=== PATIENT | female | born 1970 | race Caucasian/White ===

== ENCOUNTER 2020-02-03 20:04 | Emergency (ER) | payer SELFPAY ==
[2020-02-03] MEDS ORDERED: Sodium Chloride 0.9% 2.5 ML Syringe FLUSH PRN (20:32)
[2020-02-03] MEDS ORDERED: Famotidine 20 MG/2 ML SDV IVPUSH ONE (20:32)
[2020-02-03] MEDS ORDERED: Aspirin 81 MG Tab.Chew PO ONE (20:32)
[2020-02-03] MEDS ORDERED: Ondansetron 4 MG/2 ML SDV IVPUSH ONE (20:32)
[2020-02-03] MEDS ORDERED: Sodium Chloride 0.9% 10 ML Syringe FLUSH PRN (20:32)
--- NOTE | 2020-02-03 20:36 | EDM.PDOC ---
ED HPI GENERAL MEDICAL PROBLEM - General Chief Complaint: Cardiovascular Problem Stated Complaint: HARD TIME BREATHING,SHOULDER BLADE PAIN Time Seen by Provider: 02/03/20 20:21 Source of Information: Reports: Patient History Limitations: Reports: No Limitations - History of Present Illness INITIAL COMMENTS - FREE TEXT/NARRATIVE: History of present illness: [Patient is 50-year-old female with no significant cardiac history who presents with hypertension, heartburn, pain and sensation of hotness to the right side of her neck and right shoulder. She states that her blood pressure was high this morning, she took her normal lisinopril dose, 20 mg, this morning and took a nap. She states that she had forgotten she took these blood pressure pills earlier and she took another dose of lisinopril after she woke up from her nap. She states after this she felt a little bit loopy. She was concerned her blood pressure would be low but instead it seemed it was running quite high, much higher than usual. Stated that the blood pressure at home was over 200 systolic. Heartburn is substernal. She states that normally when she gets heartburn it is more epigastric in nature. She tried taking some [id number] antacids but this did not provide significant relief. She states that she has had a mild headache all day today. Denies any previous cardiac history. She does smoke cigarettes. Denies chronic lung problems. No previous stress tests or cardiac work-ups.] Review of systems: As per history of present illness and below otherwise all systems reviewed and n egative. Past medical history: As per history of present illness and as reviewed below otherwise noncontributory. Surgical history: As per history of present illness and as reviewed below otherwise noncontributory. Social history: No reported history of drug or alcohol abuse. Family history: As per history of present illness and as reviewed below otherwise noncontributory. Physical exam: General: Awake, alert, no acute distress, A&O X3. HEENT: Atraumatic, normocephalic, pupils reactive, negative for conjunctival pallor or scleral icterus, mucous membranes moist, throat clear, neck supple, nontender, trachea midline. Lungs: Clear to auscultation, breath sounds equal bilaterally, chest nontender. Heart: RRR, normal S1S2, no JVD. Abdomen: Soft, nondistended, nontender. Negative for masses or hepatosplenomegaly. Negative for costovertebral tenderness. Pelvis: Stable nontender. Genitourinary: Deferred. Rectal: Deferred. Extremities: Atraumatic, no edema, Neurovascular unremarkable. Neuro: Motor and sensory grossly intact throughout. Exam nonfocal. Diagnostics: [] Therapeutics: [] Impression: [] Plan: [] Definitive disposition and diagnosis as appropriate pending reevaluation and review of above. 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 INSTALLER History: ovarian cyst rupture Musculoskeletal History: Reports: Back Pain, Chronic - Past Surgical History GI Surgical History: Reports: Other (See Below) Other GI Surgeries/Procedures: hernia repair x 3 Female Surgical History: Reports: Other (See Below) Other Female Surgeries/Procedures: ovarian cyst rupture Musculoskeletal Surgical History: Reports: Other (See Below) Other Musculoskeletal Surgeries/Procedures:: back and neck pain Social & Family History - Recreational Drug Use Recreational Drug Use: No ED ROS GENERAL - Review of Systems Review Of Systems: Comprehensive ROS is negative, except as noted in HPI. ED EXAM, GENERAL - Physical Exam Exam: See Below (See H&P) EKG INTERPRETATION EKG Date: 02/03/20 Time: 20:20 Rhythm: NSR Rate (Beats/Min): 80 Scotts: Normal P-Wave: Present QRS: Normal ST-T: Normal QT: Normal Course - Vital Signs Text/Narrative:: Serial troponins are negative. CTA of the chest is negative for PE. She does have evidence of a pericardial fat pad. There is evidence of lingular atelectasis, this is more likely given her clinical findings then infiltrate or pneumonia. I updated her also in the findings of the radiologist comments on the liver. I told her this was of uncertain significance and she needed to follow-up through her PCP about it. Her symptoms are better controlled. Her chest discomfort and heartburn type symptoms have resolved. Her arm pain is resolved. Her headache has significantly improved. She reports feeling tired. I believe given her work-up she is an appropriate candidate for outpatient management and follow-up. She is a heart score of 2 for her age and history of hypertension. Return precautions provided otherwise she was well-appearing, hypertension has resolved, vital signs stable at discharge. Last Recorded V/S: Last Vital Signs Temp 36.3 C 02/03/20 20:08 Pulse 58 L 02/03/20 23:48 Resp 16 02/03/20 23:48 BP 170/100 H 02/03/20 23:48 Pulse Ox 96 02/03/20 23:48 - Orders/Labs/Meds Orders: Active Orders 24 hr Category Date Time Status Sodium Chloride 0.9% [Saline Flush] Med 02/03/20 20:32 Active 10 ml FLUSH ASDIRECTED PRN Sodium Chloride 0.9% [Saline Flush] Med 02/03/20 20:32 Active 2.5 ml FLUSH ASDIRECTED PRN Saline Lock Insert [OM.PC] Stat Oth 02/03/20 20:32 Ordered Medication Orders Sodium Chloride (Saline Flush) 10 ml FLUSH ASDIRECTED PRN PRN Reason: Keep Vein Open Last Admin: 02/03/20 20:41 Dose: 10 ml Documented by: [id number] Sodium Chloride (Saline Flush) 2.5 ml FLUSH ASDIRECTED PRN PRN Reason: Keep Vein Open Last Admin: 02/03/20 20:41 Dose: 2.5 ml Documented by: [id number] Labs: Laboratory Tests 02/03/20 02/03/20 02/03/20 Range/Units 20:15 20:15 20:15 WBC 5.87 (4.0-11.0) K/uL RBC 4.28 L (4.30-5.90) M/uL Hgb 14.0 (12.0-16.0) g/dL Hct 41.0 (36.0-46.0) % MCV 95.8 (80.0-98.0) fL MCH 32.7 H (27.0-32.0) pg MCHC 34.1 (31.0-37.0) g/dL RDW Std Deviation 43.0 (28.0-62.0) fl RDW Coeff of Malvin 12 (11.0-15.0) % Plt Count 245 (150-400) K/uL MPV 10.60 (7.40-12.00) fL Neut % (Auto) 55.9 (48.0-80.0) % Lymph % (Auto) 30.3 (16.0-40.0) % [place] % (Auto) 9.7 (0.0-15.0) % Eos % (Auto) 3.6 (0.0-7.0) % Baso % (Auto) 0.5 (0.0-1.5) % Neut # (Auto) 3.3 (1.4-5.7) K/uL Lymph # (Auto) 1.8 (0.6-2.4) K/uL [place] # (Auto) 0.6 (0.0-0.8) K/uL Eos # (Auto) 0.2 (0.0-0.7) K/uL Baso # (Auto) 0.0 (0.0-0.1) K/uL Nucleated RBC % 0.0 /100WBC Nucleated RBCs # 0 K/uL Sodium 137 (136-145) mmol/L Potassium 3.8 (3.5-5.1) mmol/L Chloride 103 (98-107) mmol/L Carbon Dioxide 21.2 (21.0-32.0) mmol/L BUN 18 (7.0-18.0) mg/dL Creatinine 0.9 (0.6-1.0) mg/dL Est Cr Clr Drug Dosing 68.04 mL/min Estimated GFR (MDRD) > 60.0 ml/min Glucose 115 H (74-106) mg/dL Calcium 9.4 (8.5-10.1) mg/dL Total Bilirubin 0.2 (0.2-1.0) mg/dL AST 15 (15-37) IU/L ALT 20 (14-63) IU/L Alkaline Phosphatase 73 (46-116) U/L Troponin I < 0.050 (0.000-0.056) ng/mL Total Protein 7.5 (6.4-8.2) g/dL Albumin 4.0 (3.4-5.0) g/dL Globulin 3.5 (2.6-4.0) g/dL Albumin/Globulin Ratio 1.1 (0.9-1.6) Lipase 195 (73-393) U/L HCG, Qual NEGATIVE (NEG) 02/03/20 Range/Units 23:30 WBC (4.0-11.0) K/uL RBC (4.30-5.90) M/uL Hgb (12.0-16.0) g/dL Hct (36.0-46.0) % MCV (80.0-98.0) fL MCH (27.0-32.0) pg MCHC (31.0-37.0) g/dL RDW Std Deviation (28.0-62.0) fl RDW Coeff of Malvin (11.0-15.0) % Plt Count (150-400) K/uL MPV (7.40-12.00) fL Neut % (Auto) (48.0-80.0) % Lymph % (Auto) (16.0-40.0) % [place] % (Auto) (0.0-15.0) % Eos % (Auto) (0.0-7.0) % Baso % (Auto) (0.0-1.5) % Neut # (Auto) (1.4-5.7) K/uL Lymph # (Auto) (0.6-2.4) K/uL [place] # (Auto) (0.0-0.8) K/uL Eos # (Auto) (0.0-0.7) K/uL Baso # (Auto) (0.0-0.1) K/uL Nucleated RBC % /100WBC Nucleated RBCs # K/uL Sodium (136-145) mmol/L Potassium (3.5-5.1) mmol/L Chloride (98-107) mmol/L Carbon Dioxide (21.0-32.0) mmol/L BUN (7.0-18.0) mg/dL Creatinine (0.6-1.0) mg/dL Est Cr Clr Drug Dosing mL/min Estimated GFR (MDRD) ml/min Glucose (74-106) mg/dL Calcium (8.5-10.1) mg/dL Total Bilirubin (0.2-1.0) mg/dL AST (15-37) IU/L ALT (14-63) IU/L Alkaline Phosphatase (46-116) U/L Troponin I < 0.050 (0.000-0.056) ng/mL Total Protein (6.4-8.2) g/dL Albumin (3.4-5.0) g/dL Globulin (2.6-4.0) g/dL Albumin/Globulin Ratio (0.9-1.6) Lipase (73-393) U/L HCG, Qual (NEG) Meds: Medications Generic Name Dose Route Start Last Admin Trade Name Freq PRN Reason Stop Dose Admin Sodium Chloride 10 ml 02/03/20 20:32 02/03/20 20:41 Saline Flush FLUSH 10 ml ASDIRECTED PRN Administration Keep Vein Open Sodium Chloride 2.5 ml 02/03/20 20:32 02/03/20 20:41 Saline Flush FLUSH 2.5 ml ASDIRECTED PRN Administration Keep Vein Open Discontinued Medications Generic Name Dose Route Start Last Admin Trade Name Freq PRN Reason Stop Dose Admin Aspirin 324 mg 02/03/20 20:32 02/03/20 20:41 Aspirin PO 02/03/20 20:33 324 mg ONETIME ONE Administration Diphenhydramine HCl 25 mg 02/03/20 23:31 02/03/20 23:41 Benadryl IVPUSH 02/03/20 23:32 25 mg ONETIME ONE Administration Famotidine 20 mg 02/03/20 20:32 02/03/20 20:42 Pepcid IVPUSH 02/03/20 20:33 20 mg ONETIME ONE Administration Iopamidol 90 ml 02/03/20 23:17 02/03/20 23:18 Isovue-370 (76%) IVPUSH 02/03/20 23:18 90 ml ONETIME ONE Administration Labetalol HCl 20 mg 02/03/20 20:59 02/03/20 21:09 Normodyne IVPUSH 02/03/20 21:00 20 mg ONETIME ONE Administration Protocol Metoclopramide HCl 10 mg 02/03/20 23:31 02/03/20 23:40 Reglan IVPUSH 02/03/20 23:32 10 mg ONETIME ONE Administration Morphine Sulfate 4 mg 02/03/20 20:59 02/03/20 21:09 Morphine IVPUSH 02/03/20 21:00 4 mg ONETIME ONE Administration Nitroglycerin 0.4 mg 02/03/20 20:32 02/03/20 20:54 Nitrostat SL 0.4 mg Q5M PRN Administration Chest Pain Ondansetron HCl 4 mg 02/03/20 20:32 02/03/20 20:42 Zofran IVPUSH 02/03/20 20:33 4 mg ONETIME ONE Administration Departure - Departure Time of Disposition: 00:57 Disposition: Home, Self-Care 01 Condition: Good Clinical Impression: Chest pain, Hypertension Instructions: Nonspecific Chest Pain, Adult, Hypertension, Adult, [id number] Forms: ED Department Discharge Additional Instructions: Follow-up with primary care doctor. Return to the ER with any new or worsening symptoms. The following information is given to patients seen in the emergency department who are being discharged to home. This information is to outline your options for follow-up care. We provide all patients seen in our emergency department with a follow-up referral. The need for follow-up, as well as the timing and circumstances, are variable depending upon the specifics of your emergency department visit. If you don't have a primary care physician on staff, we will provide you with a referral. We always advise you to contact your personal physician following an emergency department visit to inform them of the circumstance of the visit and for follow-up with them and/or the need for any referrals to a consulting specialist. The emergency department will also refer you to a specialist when appropriate. This referral assures that you have the opportunity for follow-up care with a s pecialist. All of these measure are taken in an effort to provide you with optimal care, which includes your follow-up. Under all circumstances we always encourage you to contact your private physici an who remains a resource for coordinating your care. When calling for follow-up care, please make the office aware that this follow-up is from your recent emergency room visit. If for any reason you are refused follow-up, please contact the [facility] Emergency Department at and asked to speak to the emergency department charge nurse. Sepsis Event Note (ED) - Evaluation Sepsis Screening Result: No Definite Risk - Focused Exam Vital Signs: Vital Signs Temp Pulse Resp BP BP Pulse Ox 02/03/20 23:48 58 L 16 170/100 H 96 02/03/20 22:00 72 20 93 L 02/03/20 20:54 164/118 H 02/03/20 20:47 174/118 H 02/03/20 20:42 167/119 H 02/03/20 20:08 36.3 C 79 16 210/122 H 97 - My Orders Last 24 Hours: My Active Orders 02/03/20 20:32 Sodium Chloride 0.9% [Saline Flush] 10 ml FLUSH ASDIRECTED PRN Sodium Chloride 0.9% [Saline Flush] 2.5 ml FLUSH ASDIRECTED PRN Saline Lock Insert [OM.PC] Stat - Assessment/Plan Last 24 Hours: My Active Orders 02/03/20 20:32 Sodium Chloride 0.9% [Saline Flush] 10 ml FLUSH ASDIRECTED PRN Sodium Chloride 0.9% [Saline Flush] 2.5 ml FLUSH ASDIRECTED PRN Saline Lock Insert [OM.PC] Stat
[2020-02-03] MEDS: Nitroglycerin 0.4 MG Tab.SL SL PRN ×3 (20:42→20:54)
[2020-02-03 20:52] LABS: BLOOD UREA NITROGEN,BUN 18 mg/dL (7.0-18.0); CARBON DIOXIDE,CO2 21.2 mmol/L (21.0-32.0); CHLORIDE,CL 103 mmol/L (98-107); GLUCOSE RANDOM 115 mg/dL (74-106); LIPASE 195 U/L (73-393); POTASSIUM,K 3.8 mmol/L (3.5-5.1); SODIUM,NA 137 mmol/L (136-145)
[2020-02-03] MEDS ORDERED: Morphine 4 MG/ML Syringe IVPUSH ONE (20:59)
[2020-02-03] MEDS ORDERED: Labetalol 100 MG/20 ML MDV IVPUSH ONE (20:59)
--- NOTE | 2020-02-03 21:58 | CR ---
INDICATION: Chest pain. COMPARISON: None. TECHNIQUE: Portable AP chest. FINDINGS: Normal size cardiac silhouette. Clear lung garcia with no evidence of acute pneumonic infiltrates or CHF. A vague nodular opacity left lower lung. Prominent soft tissue at the cardiophrenic angle on the right; rule out prominent fat pad at the cardiophrenic angle; rule out pericardial cyst. Suggest obtaining a CT of the chest through the lower half to assess the possible pulmonary nodule in the left lower lobe as well as the soft tissue at the cardiophrenic angle on the right . Impression: No acute pathology. 1. Possible pulmonary nodule left lung and either prominent cardiophrenic angle fat pad or pericardial cyst; suggest obtaining a CT chest for further assessment. Dictated by Vikas Osborne MD @ Feb 03 2020 9:55PM Signed by Dr. Viksa Osborne @ Feb 03 2020 9:57PM
[2020-02-03] MEDS ORDERED: Iopamidol 755 Mg/ML 100 ML Bottle IVPUSH ONE (23:17)
[2020-02-03] MEDS ORDERED: Metoclopramide 10 MG/2 ML SDV IVPUSH ONE (23:31)
[2020-02-03] MEDS ORDERED: diphenhydrAMINE 50 MG/ML SDV IVPUSH ONE (23:31)
--- NOTE | 2020-02-04 00:03 | CT ---
HISTORY: Chest pain lung nodule versus pericardial fat pad Technique: Contrast-enhanced CT PE. COMPARISON: Chest x-ray 02/03/2020. Findings: Normal caliber thoracic aorta. Adequate opacification of the pulmonary arteries. No filling defects in the pulmonary arteries. The heart size is normal. There is no pericardial effusion. Right pericardial fat pad. Lingular atelectasis and/or consolidation. No effusion. Right hemidiaphragm elevated. Small low-density collection along the inferior right hepatic lobe of uncertain etiology. This could be followed up. No suspicious bony lesions Impression: 1. No pulmonary emboli. 2. Lingula atelectasis or infiltrate. 3. Right pericardial fat pad. 4. Small low-density collection along the inferior right hepatic lobe of uncertain etiology this could be followed up Please note that all CT scans at this facility use dose modulation, iterative reconstruction, and/or weight-based dosing when appropriate to reduce radiation dose to as low as reasonably achievable. Dictated by Paula Segovia MD @ Feb 03 2020 11:48PM Signed by Dr. Paula Segovia @ Feb 04 2020 12:01AM
== END 2020-02-04 01:18 | disposition home or self-care (01) ==
LOC: MW.ED 20:04
DX: I10 Essential (primary) hypertension (principal); Z79.899 Other long term (current) drug therapy
CPT/HCPCS: 36415; 71045; 71275; 80053; 83690; 84484; 84703; 85025; 93005; 96374; 96375; 99285; A9270; J1200; J2270; J2405; J2765; J3490; Q9967; 99283

== ENCOUNTER 2020-02-08 14:38 | Observation (INO) | payer OTHER ==
[2020-02-08] MEDS ORDERED: Sodium Chloride 0.9% 1,000 ML IV ONE ×2 (15:03→20:02)
[2020-02-08] MEDS ORDERED: Ondansetron 4 MG/2 ML SDV IVPUSH ONE (15:03)
[2020-02-08] MEDS ORDERED: Ketorolac 30 MG/ML SDV IVPUSH ONE (15:03)
--- NOTE | 2020-02-08 15:10 | EDM.PDOC ---
ED HPI GENERAL MEDICAL PROBLEM - General Chief Complaint: Fever Stated Complaint: CHILLS, BODYACHE, FEVER Time Seen by Provider: 02/08/20 14:39 Source of Information: Reports: Patient History Limitations: Reports: No Limitations - History of Present Illness INITIAL COMMENTS - FREE TEXT/NARRATIVE: HISTORY AND PHYSICAL: History of present illness: Patient is a 50-year-old female who presents to the emergency room with complaints of chest pain, generalized body aches, generalized abdominal pain and tenderness and fever which started today she states that she has not had a norm al bowel movement in approximately 2 weeks, yesterday took a laxative and now has generalized abdominal pain today. She states she has not had a bowel movement with the exception of some very small "squirts of liquid". She took another laxative today without any results. She is tried to eat lunch but vomited soon after. Since this morning she has had generalized body aches that radiates into her low back up into her head. She expresses concern that she may have been exposed to COVID-19 as she was at a baseball game standing next to someone who recently returned from a group gathering at [place]. Patient denies any injury, trauma or falls. Denies any change in vision, syncope or near syncope. Denies any chest pain, back pain, shortness of breath or cough. Denies any chance of or dysuria. Has not noted any blood in urine or stool. Review of systems: As per history of present illness and below otherwise all systems reviewed and negative. Past medical history: As per history of present illness and as reviewed below otherwise noncontributory. Surgical history: As per history of present illness and as reviewed below otherwise noncontributory. Social history: See social history for further information Family history: As per history of present illness and as reviewed below otherwise noncontributory. Physical exam: General: Well developed and well nourished 50-year-old female. Alert and orientated x 3. Tearful and agitated upon arrival, nontoxic in appearance and in no acute distress. Vital signs are stable and have been reviewed by me. Nursing notes were reviewed. HEENT: Atraumatic, normocephalic, pupils equal and reactive bilaterally, negative for conjunctival pallor or scleral icterus, mucous membranes moist, TMs normal bilaterally, throat clear, neck supple, nontender, trachea midline. No drooling or trismus noted. No meningeal signs. No hot potato voice noted. Lungs: Clear to auscultation, breath sounds equal bilaterally, chest nontender. Normal work of breathing, no accessory muscles used. Heart: S1S2, regular rate and rhythm without overt murmur Abdomen: Soft, nondistended, generalized tenderness in all 4 quadrants. Negative for masses or hepatosplenomegaly. Negative for costovertebral tenderness. Pelvis: Stable nontender. Skin: Intact, warm, dry. No lesions or rashes noted. Hematologic: No petechiae or purpra. Mucosa appropriate color and normal nail bed color and refill. Extremities: Atraumatic, moves all extremities per self without difficulty or deficits, negative for cords or calf pain. Neurovascular unremarkable. Neuro: Awake, alert, oriented. Cranial nerves II through XII unremarkable. Cerebellum unremarkable. Motor and sensory unremarkable throughout. Exam nonfocal. Notes: CTA of the chest was done on 02/03/2020: No PE, right pericardial fat pad, small low-density collection along the inferior right hepatic lobe without certain etiology. Patient remains slightly tachycardic and her oxygen has now dipped into 92% on room air, 2 L per nasal cannula has been placed. Oxygenating now 97. Patient's d-dimer is elevated, although with her recent CTA of the chest ruling out a PE, I do not feel this needs to be repeated at this time. Negative COVID screening. This could be a false negative, or too soon to come back positive with the patient's onset of symptoms and her current. Patient continues to complain of generalized body aches stating "even my hair hurts". She continues to feel mildly nauseated and states she does not feel she could keep any medications down. Patient will be admitted for her CT of the abdomen and pelvis showing a mild sigmoid diverticulitis. Dr. Ortega was consulted and agreeable to admitting this patient. He is made aware of all the diagnostic findings and that a CT of her chest was held at this time. Diagnostics: CBC, CMP, Lactate, UA, HCGU, Coronavirus, CXR, abd/pelvis CT, BC x 2 Therapeutics: IV fluids, Toradol, Zofran, Ativan Impression: Mild sigmoid diverticulitis Myalgias Elevated d-dimer Plan: Admission to [facility] Definitive disposition and diagnosis as appropriate pending reevaluation and review of above. generalized Pain Score (Numeric/FACES): 10 - Related Data Allergies Allergy/AdvReac Type Severity Reaction Status Date / Time No Known Allergies Allergy Verified 02/08/20 14:57 Home Meds: Home Meds lisinopriL [Lisinopril] 10 mg PO BEDTIME 02/03/20 [History] lisinopriL [Lisinopril] 20 mg PO QAM 02/03/20 [History] ClonazePAM [KlonoPIN] 0 mg PO BEDTIME 02/08/20 [History] Past Medical History Cardiovascular History: Reports: Hypertension Gastrointestinal History: Reports: None Genitourinary History: Reports: None SPONGE MAKER History: Reports: Other (See Below) Other SPONGE MAKER History: ovarian cyst rupture Musculoskeletal History: Reports: Back Pain, Chronic Psychiatric History: Reports: Other (See Below) Other Psychiatric History: sleep disturbance - Past Surgical History Cardiovascular Surgical History: Reports: None GI Surgical History: Reports: Other (See Below) Other GI Surgeries/Procedures: hernia repair x 3 Female Surgical History: Reports: Other (See Below) Other Female Surgeries/Procedures: ovarian cyst rupture Musculoskeletal Surgical History: Reports: Other (See Below) Other Musculoskeletal Surgeries/Procedures:: back and neck pain Social & Family History - Family History Family Medical History: Noncontributory - Tobacco Use Smoking Status *Q: Current Some Day Smoker Years of Tobacco use: 2 Packs/Tins Daily: 0.1 - Caffeine Use Caffeine Use: Reports: Coffee - Recreational Drug Use Recreational Drug Use: No ED ROS GENERAL - Review of Systems Review Of Systems: Comprehensive ROS is negative, except as noted in HPI. ED EXAM, GENERAL - Physical Exam Exam: See Below (See dictation) Course - Vital Signs Last Recorded V/S: Last Vital Signs Temp 99.8 F 02/08/20 16:38 Pulse 122 H 02/08/20 16:04 Resp 20 02/08/20 16:04 BP 108/75 02/08/20 16:04 Pulse Ox 94 L 02/08/20 16:06 - Orders/Labs/Meds Orders: Active Orders 24 hr Category Date Time Status Admission Status [Patient Status] [ADT] Stat ADT 02/08/20 17:09 Active EKG Documentation Completion [RC] STAT Care 02/08/20 16:08 Active Oxygen Therapy [RC] PRN Care 02/08/20 18:06 Active Up ad Mary [RC] ASDIRECTED Care 02/08/20 18:06 Active VTE/DVT Education [RC] PER UNIT ROUTINE Care 02/08/20 18:06 Active Vital Signs [RC] Q4H Care 02/08/20 18:06 Active Clear Liquid Diet [DIET] Diet 02/08/20 Lunch Active CAMPYLOBACTER CULT [MREF] Stat Lab 02/08/20 17:10 Ordered CBC WITH AUTO DIFF [HEME] AM Lab 02/09/20 05:11 Ordered COMPREHENSIVE METABOLIC PN,CMP [CHEM] AM Lab 02/09/20 05:11 Ordered CULTURE BLOOD [BC] Stat Lab 02/08/20 14:53 Received CULTURE BLOOD [BC] Stat Lab 02/08/20 15:15 Results OVA & PARASITES BY IMMUNOASSAY [MREF] Stat Lab 02/08/20 17:10 Ordered UA RFX ESVIN AND CULT IF INDIC [URIN] Stat Lab 02/08/20 15:03 Ordered Acetaminophen [TylenoL] Med 02/08/20 18:06 Active 650 mg PO Q4H PRN Ciprofloxacin in D5W [Cipro in D5W 400 MG/200 ML] 400 Med 02/08/20 18:15 Active mg Premix Bag 1 bag IV Q12H Enoxaparin [Lovenox] Med 02/08/20 18:15 Active 40 mg SUBCUT Q24H Lactated Ringers [Ringers, Lactated] 1,000 ml Med 02/08/20 18:15 Active IV ASDIRECTED Ondansetron [Zofran] Med 02/08/20 18:06 Active 4 mg IVPUSH Q4H PRN metroNIDAZOLE/Normal Saline [Flagyl 500 MG in NS 100 ML Med 02/08/20 18:15 Active ] 500 mg Premix Bag 1 bag IV Q8H Blood Culture x2 Reflex Set [OM.PC] Stat Oth 02/08/20 15:03 Ordered Resuscitation Status Routine Resus Stat 02/08/20 18:06 Ordered Medication Orders Acetaminophen (Tylenol) 650 mg PO Q4H PRN PRN Reason: Pain (Mild 1-3)/fever Enoxaparin Sodium (Lovenox) 40 mg SUBCUT Q24H JES Ciprofloxacin/Dextrose 400 mg/ (Premix) 200 mls @ 200 mls/hr IV Q12H JES Metronidazole 500 mg/ Premix 100 mls @ 100 mls/hr IV Q8H JES Lactated Ringer's (Ringers, Lactated) 1,000 mls @ 100 mls/hr IV ASDIRECTED [facility] Ondansetron HCl (Zofran) 4 mg IVPUSH Q4H PRN PRN Reason: Nausea Labs: Laboratory Tests 02/08/20 02/08/20 02/08/20 Range/Units 14:53 14:53 14:53 WBC 4.12 (4.0-11.0) K/uL RBC 4.50 (4.30-5.90) M/uL Hgb 14.7 (12.0-16.0) g/dL Hct 43.1 (36.0-46.0) % MCV 95.8 (80.0-98.0) fL MCH 32.7 H (27.0-32.0) pg MCHC 34.1 (31.0-37.0) g/dL RDW Std Deviation 42.5 (28.0-62.0) fl RDW Coeff of Malvin 12 (11.0-15.0) % Plt Count 195 (150-400) K/uL MPV 10.30 (7.40-12.00) fL Neut % (Auto) 85.7 H (48.0-80.0) % Lymph % (Auto) 10.0 L (16.0-40.0) % [place] % (Auto) 3.4 (0.0-15.0) % Eos % (Auto) 0.7 (0.0-7.0) % Baso % (Auto) 0.2 (0.0-1.5) % Neut # (Auto) 3.5 (1.4-5.7) K/uL Lymph # (Auto) 0.4 L (0.6-2.4) K/uL [place] # (Auto) 0.1 (0.0-0.8) K/uL Eos # (Auto) 0.0 (0.0-0.7) K/uL Baso # (Auto) 0.0 (0.0-0.1) K/uL Nucleated RBC % 0.0 /100WBC Nucleated RBCs # 0 K/uL D-Dimer, Quantitative (0.0-0.50) mg/L FEU Lactate 1.9 (0.20-2.00) mmol/L Sodium 135 L (136-145) mmol/L Potassium 3.7 (3.5-5.1) mmol/L Chloride 98 (98-107) mmol/L Carbon Dioxide 23.8 (21.0-32.0) mmol/L BUN 19 H (7.0-18.0) mg/dL Creatinine 1.0 (0.6-1.0) mg/dL Est Cr Clr Drug Dosing 61.23 mL/min Estimated GFR (MDRD) 58.9 ml/min Glucose 107 H (74-106) mg/dL Calcium 9.7 (8.5-10.1) mg/dL Total Bilirubin 0.3 (0.2-1.0) mg/dL AST 4 L (15-37) IU/L ALT 36 (14-63) IU/L Alkaline Phosphatase 90 (46-116) U/L Creatine Kinase 60 (26-308) U/L Total Protein 8.6 H (6.4-8.2) g/dL Albumin 4.1 (3.4-5.0) g/dL Globulin 4.5 H (2.6-4.0) g/dL Albumin/Globulin Ratio 0.9 (0.9-1.6) Lipase 203 (73-393) U/L TSH 3rd Generation (0.36-3.74) uIU/mL HCG, Qual (NEG) COVID-19 (NILAY) (NEGATIVE) 02/08/20 02/08/20 02/08/20 Range/Units 14:53 14:53 14:53 WBC (4.0-11.0) K/uL RBC (4.30-5.90) M/uL Hgb (12.0-16.0) g/dL Hct (36.0-46.0) % MCV (80.0-98.0) fL MCH (27.0-32.0) pg MCHC (31.0-37.0) g/dL RDW Std Deviation (28.0-62.0) fl RDW Coeff of Malvin (11.0-15.0) % Plt Count (150-400) K/uL MPV (7.40-12.00) fL Neut % (Auto) (48.0-80.0) % Lymph % (Auto) (16.0-40.0) % [place] % (Auto) (0.0-15.0) % Eos % (Auto) (0.0-7.0) % Baso % (Auto) (0.0-1.5) % Neut # (Auto) (1.4-5.7) K/uL Lymph # (Auto) (0.6-2.4) K/uL [place] # (Auto) (0.0-0.8) K/uL Eos # (Auto) (0.0-0.7) K/uL Baso # (Auto) (0.0-0.1) K/uL Nucleated RBC % /100WBC Nucleated RBCs # K/uL D-Dimer, Quantitative (0.0-0.50) mg/L FEU Lactate 1.9 (0.20-2.00) mmol/L Sodium (136-145) mmol/L Potassium (3.5-5.1) mmol/L Chloride (98-107) mmol/L Carbon Dioxide (21.0-32.0) mmol/L BUN (7.0-18.0) mg/dL Creatinine (0.6-1.0) mg/dL Est Cr Clr Drug Dosing mL/min Estimated GFR (MDRD) ml/min Glucose (74-106) mg/dL Calcium (8.5-10.1) mg/dL Total Bilirubin (0.2-1.0) mg/dL AST (15-37) IU/L ALT (14-63) IU/L Alkaline Phosphatase (46-116) U/L Creatine Kinase (26-308) U/L Total Protein (6.4-8.2) g/dL Albumin (3.4-5.0) g/dL Globulin (2.6-4.0) g/dL Albumin/Globulin Ratio (0.9-1.6) Lipase (73-393) U/L TSH 3rd Generation 0.40 (0.36-3.74) uIU/mL HCG, Qual NEGATIVE (NEG) COVID-19 (NILAY) (NEGATIVE) 02/08/20 02/08/20 Range/Units 14:53 15:29 WBC (4.0-11.0) K/uL RBC (4.30-5.90) M/uL Hgb (12.0-16.0) g/dL Hct (36.0-46.0) % MCV (80.0-98.0) fL MCH (27.0-32.0) pg MCHC (31.0-37.0) g/dL RDW Std Deviation (28.0-62.0) fl RDW Coeff of Malvin (11.0-15.0) % Plt Count (150-400) K/uL MPV (7.40-12.00) fL Neut % (Auto) (48.0-80.0) % Lymph % (Auto) (16.0-40.0) % [place] % (Auto) (0.0-15.0) % Eos % (Auto) (0.0-7.0) % Baso % (Auto) (0.0-1.5) % Neut # (Auto) (1.4-5.7) K/uL Lymph # (Auto) (0.6-2.4) K/uL [place] # (Auto) (0.0-0.8) K/uL Eos # (Auto) (0.0-0.7) K/uL Baso # (Auto) (0.0-0.1) K/uL Nucleated RBC % /100WBC Nucleated RBCs # K/uL D-Dimer, Quantitative 2.29 H (0.0-0.50) mg/L FEU Lactate (0.20-2.00) mmol/L Sodium (136-145) mmol/L Potassium (3.5-5.1) mmol/L Chloride (98-107) mmol/L Carbon Dioxide (21.0-32.0) mmol/L BUN (7.0-18.0) mg/dL Creatinine (0.6-1.0) mg/dL Est Cr Clr Drug Dosing mL/min Estimated GFR (MDRD) ml/min Glucose (74-106) mg/dL Calcium (8.5-10.1) mg/dL Total Bilirubin (0.2-1.0) mg/dL AST (15-37) IU/L ALT (14-63) IU/L Alkaline Phosphatase (46-116) U/L Creatine Kinase (26-308) U/L Total Protein (6.4-8.2) g/dL Albumin (3.4-5.0) g/dL Globulin (2.6-4.0) g/dL Albumin/Globulin Ratio (0.9-1.6) Lipase (73-393) U/L TSH 3rd Generation (0.36-3.74) uIU/mL HCG, Qual (NEG) COVID-19 (NILAY) NEGATIVE (NEGATIVE) Meds: Medications Generic Name Dose Route Start Last Admin Trade Name Ildefonso PRN Reason Stop Dose Admin Acetaminophen 650 mg 02/08/20 18:06 Tylenol PO Q4H PRN Pain (Mild 1-3)/fever Enoxaparin Sodium 40 mg 02/08/20 18:15 Lovenox SUBCUT Q24H JES Ciprofloxacin/Dextrose 400 mg/ 200 mls @ 200 mls/hr 02/08/20 18:15 Premix IV Q12H JES Metronidazole 500 mg/ Premix 100 mls @ 100 mls/hr 02/08/20 18:15 IV Q8H JES Lactated Ringer's 1,000 mls @ 100 mls/hr 02/08/20 18:15 Ringers, Lactated IV ASDIRECTED JES Ondansetron HCl 4 mg 02/08/20 18:06 Zofran IVPUSH Q4H PRN Nausea Discontinued Medications Generic Name Dose Route Start Last Admin Trade Name Freq PRN Reason Stop Dose Admin Acetaminophen 1,000 mg 02/08/20 15:59 02/08/20 16:03 Tylenol Extra Strength PO 02/08/20 16:00 1,000 mg ONETIME ONE Administration Sodium Chloride 1,000 mls @ 999 mls/hr 02/08/20 15:03 02/08/20 15:18 Normal Saline IV 02/08/20 16:03 999 mls/hr STAT ONE Administration Metronidazole 500 mg/ Premix 100 mls @ 100 mls/hr 02/08/20 17:08 02/08/20 17:33 IV 02/08/20 18:07 100 mls/hr ONETIME ONE Administration Sodium Chloride 1,000 mls @ 125 mls/hr 02/08/20 17:15 Normal Saline IV ASDIRECTED JES Ciprofloxacin/Dextrose 400 mg/ 200 mls @ 200 mls/hr 02/08/20 17:15 Premix IV Q12H JES Sodium Chloride 1,000 mls @ 100 mls/hr 02/08/20 18:15 Normal Saline IV STAT JES Iopamidol 100 ml 02/08/20 16:32 02/08/20 16:32 Isovue Multipack-370 (76%) IVPUSH 02/08/20 16:33 100 ml ONETIME ONE Administration Ketorolac Tromethamine 30 mg 02/08/20 15:03 02/08/20 15:17 Toradol IVPUSH 02/08/20 15:04 30 mg ONETIME ONE Administration Lorazepam 1 mg 02/08/20 15:17 02/08/20 15:21 Ativan IVPUSH 02/08/20 15:18 1 mg ONETIME ONE Administration Morphine Sulfate 2 mg 02/08/20 17:08 02/08/20 17:32 Morphine IVPUSH 02/08/20 17:09 2 mg ONETIME ONE Administration Ondansetron HCl 4 mg 02/08/20 15:03 02/08/20 15:17 Zofran IVPUSH 02/08/20 15:04 4 mg ONETIME ONE Administration Departure - Departure Time of Disposition: 18:47 Disposition: Refer to Observation Clinical Impression: Myalgia, Diverticulitis, Elevated d-dimer - Discharge Information Referrals: PCP,Not In Area [Primary Care Provider] - Forms: ED Department Discharge Sepsis Event Note (ED) - Evaluation Sepsis Screening Result: No Definite Risk - Focused Exam Vital Signs: Vital Signs Temp Temp Pulse Resp BP Pulse Ox 02/08/20 16:38 99.8 F 02/08/20 16:33 99.8 F 02/08/20 16:06 94 L 02/08/20 16:04 122 H 20 108/75 90 L 02/08/20 16:03 100.7 F H 02/08/20 14:40 102.2 F H 128 H 21 H 161/112 H 94 L - My Orders Last 24 Hours: My Active Orders 02/08/20 14:53 CULTURE BLOOD [BC] Stat 02/08/20 15:03 UA RFX ESVIN AND CULT IF INDIC [URIN] Stat Blood Culture x2 Reflex Set [OM.PC] Stat 02/08/20 15:15 CULTURE BLOOD [BC] Stat 02/08/20 16:08 EKG Documentation Completion [RC] STAT 02/08/20 17:09 Admission Status [Patient Status] [ADT] Stat 02/08/20 17:10 CAMPYLOBACTER CULT [MREF] Stat OVA & PARASITES BY IMMUNOASSAY [MREF] Stat - Assessment/Plan Last 24 Hours: My Active Orders 02/08/20 14:53 CULTURE BLOOD [BC] Stat 02/08/20 15:03 UA RFX ESVIN AND CULT IF INDIC [URIN] Stat Blood Culture x2 Reflex Set [OM.PC] Stat 02/08/20 15:15 CULTURE BLOOD [BC] Stat 02/08/20 16:08 EKG Documentation Completion [RC] STAT 02/08/20 17:09 Admission Status [Patient Status] [ADT] Stat 02/08/20 17:10 CAMPYLOBACTER CULT [MREF] Stat OVA & PARASITES BY IMMUNOASSAY [MREF] Stat
[2020-02-08] MEDS ORDERED: LORazepam 2 MG/ML SDV IVPUSH ONE (15:17)
[2020-02-08] MEDS ORDERED: Acetaminophen 500 MG Tab PO ONE (15:59)
[2020-02-08 16:02] LABS: CARBON DIOXIDE,CO2 23.8 mmol/L (21.0-32.0); POTASSIUM,K 3.7 mmol/L (3.5-5.1)
[2020-02-08] MEDS ORDERED: Iopamidol 755 MG/ML 200 ML Multipack Bottle IVPUSH ONE (16:32)
--- NOTE | 2020-02-08 16:51 | CT ---
CT abdomen and pelvis Technique: Multiple axial sections were obtained from above the dome of the diaphragm inferiorly through the pubic symphysis. Intravenous contrast was utilized. No oral contrast has been given. Findings: Mild inflammatory change is noted next to the sigmoid colon most likely relating to mild diverticulitis. Visualized lung bases shows increased density most likely relating to areas of atelectasis. Liver contains no focal abnormality. Gallbladder contains no calcified gallstones. Spleen appears normal in size. Adrenal glands show no nodule. Kidneys show symmetric contrast enhancement without hydronephrosis or mass. Pancreas shows no discrete abnormality. Aorta shows no aneurysm. No retroperitoneal adenopathy is seen. Prior abdominal wall surgery is noted. No pelvic mass or adenopathy is appreciated. No free fluid is seen. Appendix is felt to be present and is normal in size. Bone window settings were reviewed which shows prior surgery at L5-S1. Mild scattered degenerative change is noted. Slight limbus type vertebra are noted within the anterior and superior endplates of L3 and L4. Impression: 1. Findings which are felt compatible with mild sigmoid diverticulitis. 2. Other nonacute findings as noted above. Diagnostic code #3 This report was dictated in MDT
[2020-02-08] MEDS ORDERED: Morphine 2 MG/ML SYRINGE IVPUSH ONE (17:08)
[2020-02-08] MEDS ORDERED: metroNIDAZOLE/Normal Saline 500 MG in Premix Bag 1 BAG IV ONE (17:08)
--- NOTE | 2020-02-08 17:13 | CR ---
Chest: Portable view of the chest was obtained. Comparison: Prior chest x-ray of 02/03/20. Heart size and mediastinum are normal. Lungs are clear with no acute parenchymal change. Bony structures are grossly intact. Impression: 1. Nothing acute is seen on portable chest x-ray. Diagnostic code #1 This report was dictated in MDT
[2020-02-08] MEDS ORDERED: Ciprofloxacin in D5W 400 MG in Premix Bag 1 BAG IV SCH ×2 (17:15)
[2020-02-08] MEDS ORDERED: Sodium Chloride 0.9% 1,000 ML IV SCH ×2 (17:15→18:15)
--- NOTE | 2020-02-08 17:47 | PCM.HP.2 ---
H&P History of Present Illness - General Date of Service: 02/08/20 Admit Problem/Dx: Admission Diagnosis/Problem Admission Diagnosis/Problem Diverticulitis of sigmoid colon Source of Information: Patient History Limitations: Reports: No Limitations - History of Present Illness Initial Comments - Free Text/Narative: 50-year-old female presents complaining of abdominal pain, fevers and body aches for 1 day. She has a PMH of HTN, back pain and insomnia. Patient also reports not having normal bowel movements for approximately 2 weeks now. Her body aches are generalized and extend up to the left side of her head. She does have small liquid bowel movements. She tried taking some laxatives which did not help much. She reports having nausea and vomiting earlier this afternoon. Denies any sore throat, cough, SOB, chest pain, blood in stool, blood in urine, numbness or ting ling in extremities. She does report a history of a bout of diverticulitis when she was 19 years old. Denies any current alcohol, tobacco or illicit drug use. In the ER, temp 102.2 F, tachycardic, CBC and CMP unremarkable. Lactate level normal. D-dimer elevated at 2.29. COVID 19 test negative[address] negative[address] CT abd/pelvis showed mild sigmoid diverticulitis. Blood culture obtained and patient started on IV cipro and flagyl. Patient given 1L IV NS bolus, toradol, zofran and ativan. She was admitted for further evaluation and treatment. generalized Pain Score (Numeric/FACES): 10 - Related Data Allergies/Adverse Reactions: Allergies Allergy/AdvReac Type Severity Reaction Status Date / Time No Known Allergies Allergy Verified 02/08/20 14:57 Home Medications: Home Meds lisinopriL [Lisinopril] 10 mg PO BEDTIME 02/03/20 [History] lisinopriL [Lisinopril] 20 mg PO QAM 02/03/20 [History] ClonazePAM [KlonoPIN] 0 mg PO BEDTIME 02/08/20 [History] Past Medical History Cardiovascular History: Reports: Hypertension Gastrointestinal History: Reports: None Genitourinary History: Reports: None [employer] History: Reports: Other (See Below) Other OB/BYN History: ovarian cyst rupture Musculoskeletal History: Reports: Back Pain, Chronic Psychiatric History: Reports: Other (See Below) Other Psychiatric History: sleep disturbance - Past Surgical History Cardiovascular Surgical History: Reports: None GI Surgical History: Reports: Other (See Below) Other GI Surgeries/Procedures: hernia repair x 3 Female Surgical History: Reports: Other (See Below) Other Female Surgeries/Procedures: ovarian cyst rupture Musculoskeletal Surgical History: Reports: Other (See Below) Other Musculoskeletal Surgeries/Procedures:: back and neck pain Social & Family History - Family History Family Medical History: Noncontributory - Tobacco Use Smoking Status *Q: Current Some Day Smoker Years of Tobacco use: 2 Packs/Tins Daily: 0.1 - Caffeine Use Caffeine Use: Reports: Coffee - Recreational Drug Use Recreational Drug Use: No H&P Review of Systems - Review of Systems: Review Of Systems: Comprehensive ROS is negative, except as noted in HPI. Exam - Exam Exam: See Below - Vital Signs Vital Signs: Last Vital Signs Temp 37.7 C 02/08/20 16:38 Pulse 122 H 02/08/20 16:04 Resp 20 02/08/20 16:04 BP 108/75 02/08/20 16:04 Pulse Ox 94 L 02/08/20 16:06 Weight: 85.729 kg - Exam General: Alert, Oriented, Cooperative, Mild Distress HEENT: Conjunctiva Clear, EOMI, Hearing Intact, Posterior Pharynx Clear, Pupils Equal, Pupils Reactive Neck: Supple, Trachea Midline Lungs: Clear to Auscultation, Normal Respiratory Effort Cardiovascular: Regular Rhythm, Tachycardia GI/Abdominal Exam: Other (soft, ttp in LUQ and LLQ, normal bowel sounds, mild distention, no guarding) Extremities: Normal Inspection, No Pedal Edema Peripheral Pulses: 2+: Radial (L), Radial (R) Skin: Warm, Dry, Intact Neurological: Cranial Nerves Intact, Strength Equal Bilateral, Normal Speech, Normal Tone Neuro Extensive - Mental Status: Alert, Oriented x3, Normal Mood/Affect Psychiatric: Alert, Normal Affect, Normal Mood - Patient Data Lab Results Last 24 hrs: Laboratory Results - last 24 hr 02/08/20 02/08/20 02/08/20 Range/Units 14:53 14:53 14:53 WBC 4.12 (4.0-11.0) K/uL RBC 4.50 (4.30-5.90) M/uL Hgb 14.7 (12.0-16.0) g/dL Hct 43.1 (36.0-46.0) % MCV 95.8 (80.0-98.0) fL MCH 32.7 H (27.0-32.0) pg MCHC 34.1 (31.0-37.0) g/dL RDW Std Deviation 42.5 (28.0-62.0) fl RDW Coeff of Malvin 12 (11.0-15.0) % Plt Count 195 (150-400) K/uL MPV 10.30 (7.40-12.00) fL Neut % (Auto) 85.7 H (48.0-80.0) % Lymph % (Auto) 10.0 L (16.0-40.0) % [place] % (Auto) 3.4 (0.0-15.0) % Eos % (Auto) 0.7 (0.0-7.0) % Baso % (Auto) 0.2 (0.0-1.5) % Neut # (Auto) 3.5 (1.4-5.7) K/uL Lymph # (Auto) 0.4 L (0.6-2.4) K/uL [place] # (Auto) 0.1 (0.0-0.8) K/uL Eos # (Auto) 0.0 (0.0-0.7) K/uL Baso # (Auto) 0.0 (0.0-0.1) K/uL Nucleated RBC % 0.0 /100WBC Nucleated RBCs # 0 K/uL D-Dimer, Quantitative (0.0-0.50) mg/L FEU Lactate 1.9 (0.20-2.00) mmol/L Sodium 135 L (136-145) mmol/L Potassium 3.7 (3.5-5.1) mmol/L Chloride 98 (98-107) mmol/L Carbon Dioxide 23.8 (21.0-32.0) mmol/L BUN 19 H (7.0-18.0) mg/dL Creatinine 1.0 (0.6-1.0) mg/dL Est Cr Clr Drug Dosing 61.23 mL/min Estimated GFR (MDRD) 58.9 ml/min Glucose 107 H (74-106) mg/dL Calcium 9.7 (8.5-10.1) mg/dL Total Bilirubin 0.3 (0.2-1.0) mg/dL AST 4 L (15-37) IU/L ALT 36 (14-63) IU/L Alkaline Phosphatase 90 (46-116) U/L Creatine Kinase 60 (26-308) U/L Total Protein 8.6 H (6.4-8.2) g/dL Albumin 4.1 (3.4-5.0) g/dL Globulin 4.5 H (2.6-4.0) g/dL Albumin/Globulin Ratio 0.9 (0.9-1.6) Lipase 203 (73-393) U/L TSH 3rd Generation (0.36-3.74) uIU/mL HCG, Qual (NEG) COVID-19 (NILAY) (NEGATIVE) 02/08/20 02/08/20 02/08/20 Range/Units 14:53 14:53 14:53 WBC (4.0-11.0) K/uL RBC (4.30-5.90) M/uL Hgb (12.0-16.0) g/dL Hct (36.0-46.0) % MCV (80.0-98.0) fL MCH (27.0-32.0) pg MCHC (31.0-37.0) g/dL RDW Std Deviation (28.0-62.0) fl RDW Coeff of Malvin (11.0-15.0) % Plt Count (150-400) K/uL MPV (7.40-12.00) fL Neut % (Auto) (48.0-80.0) % Lymph % (Auto) (16.0-40.0) % [place] % (Auto) (0.0-15.0) % Eos % (Auto) (0.0-7.0) % Baso % (Auto) (0.0-1.5) % Neut # (Auto) (1.4-5.7) K/uL Lymph # (Auto) (0.6-2.4) K/uL [place] # (Auto) (0.0-0.8) K/uL Eos # (Auto) (0.0-0.7) K/uL Baso # (Auto) (0.0-0.1) K/uL Nucleated RBC % /100WBC Nucleated RBCs # K/uL D-Dimer, Quantitative (0.0-0.50) mg/L FEU Lactate 1.9 (0.20-2.00) mmol/L Sodium (136-145) mmol/L Potassium (3.5-5.1) mmol/L Chloride (98-107) mmol/L Carbon Dioxide (21.0-32.0) mmol/L BUN (7.0-18.0) mg/dL Creatinine (0.6-1.0) mg/dL Est Cr Clr Drug Dosing mL/min Estimated GFR (MDRD) ml/min Glucose (74-106) mg/dL Calcium (8.5-10.1) mg/dL Total Bilirubin (0.2-1.0) mg/dL AST (15-37) IU/L ALT (14-63) IU/L Alkaline Phosphatase (46-116) U/L Creatine Kinase (26-308) U/L Total Protein (6.4-8.2) g/dL Albumin (3.4-5.0) g/dL Globulin (2.6-4.0) g/dL Albumin/Globulin Ratio (0.9-1.6) Lipase (73-393) U/L TSH 3rd Generation 0.40 (0.36-3.74) uIU/mL HCG, Qual NEGATIVE (NEG) COVID-19 (NILAY) (NEGATIVE) 02/08/20 02/08/20 Range/Units 14:53 15:29 WBC (4.0-11.0) K/uL RBC (4.30-5.90) M/uL Hgb (12.0-16.0) g/dL Hct (36.0-46.0) % MCV (80.0-98.0) fL MCH (27.0-32.0) pg MCHC (31.0-37.0) g/dL RDW Std Deviation (28.0-62.0) fl RDW Coeff of Malvin (11.0-15.0) % Plt Count (150-400) K/uL MPV (7.40-12.00) fL Neut % (Auto) (48.0-80.0) % Lymph % (Auto) (16.0-40.0) % [place] % (Auto) (0.0-15.0) % Eos % (Auto) (0.0-7.0) % Baso % (Auto) (0.0-1.5) % Neut # (Auto) (1.4-5.7) K/uL Lymph # (Auto) (0.6-2.4) K/uL [place] # (Auto) (0.0-0.8) K/uL Eos # (Auto) (0.0-0.7) K/uL Baso # (Auto) (0.0-0.1) K/uL Nucleated RBC % /100WBC Nucleated RBCs # K/uL D-Dimer, Quantitative 2.29 H (0.0-0.50) mg/L FEU Lactate (0.20-2.00) mmol/L Sodium (136-145) mmol/L Potassium (3.5-5.1) mmol/L Chloride (98-107) mmol/L Carbon Dioxide (21.0-32.0) mmol/L BUN (7.0-18.0) mg/dL Creatinine (0.6-1.0) mg/dL Est Cr Clr Drug Dosing mL/min Estimated GFR (MDRD) ml/min Glucose (74-106) mg/dL Calcium (8.5-10.1) mg/dL Total Bilirubin (0.2-1.0) mg/dL AST (15-37) IU/L ALT (14-63) IU/L Alkaline Phosphatase (46-116) U/L Creatine Kinase (26-308) U/L Total Protein (6.4-8.2) g/dL Albumin (3.4-5.0) g/dL Globulin (2.6-4.0) g/dL Albumin/Globulin Ratio (0.9-1.6) Lipase (73-393) U/L TSH 3rd Generation (0.36-3.74) uIU/mL HCG, Qual (NEG) COVID-19 (NILAY) NEGATIVE (NEGATIVE) Result Diagrams: 02/08/20 14:53 02/08/20 14:53 Ari Results Last 24 hrs: Microbiology 02/08/20 15:15 Anaerobic Blood Culture - Final Blood - Venous - Lab Draw Sepsis Event Note - Evaluation Sepsis Screening Result: No Definite Risk - Focused Exam Vital Signs: Vital Signs Temp Temp Pulse Resp BP Pulse Ox 02/08/20 16:38 37.7 C 02/08/20 16:33 37.7 C 02/08/20 16:06 94 L 02/08/20 16:04 122 H 20 108/75 90 L 02/08/20 16:03 38.2 C H 02/08/20 14:40 39.0 C H 128 H 21 H 161/112 H 94 L Problem List Initiated/Reviewed/Updated: Yes Orders Last 24hrs: Active Orders 24 hr Category Date Time Status Admission Status [Patient Status] [ADT] Stat ADT 02/08/20 17:09 Active EKG Documentation Completion [RC] STAT Care 02/08/20 16:08 Active NPO Now [Nothing per Oral Now Diet] [DIET] Diet 02/08/20 Dinner Active CAMPYLOBACTER CULT [MREF] Stat Lab 02/08/20 17:10 Ordered CULTURE BLOOD [BC] Stat Lab 02/08/20 14:53 Received CULTURE BLOOD [BC] Stat Lab 02/08/20 15:15 Results OVA & PARASITES BY IMMUNOASSAY [MREF] Stat Lab 02/08/20 17:10 Ordered UA RFX ARI AND CULT IF INDIC [URIN] Stat Lab 02/08/20 15:03 Ordered Ciprofloxacin in D5W [Cipro in D5W 400 MG/200 ML] 400 Med 02/08/20 17:15 Act nathan mg Premix Bag 1 bag IV Q12H Sodium Chloride 0.9% [Normal Saline] 1,000 ml Med 02/08/20 17:15 Active IV ASDIRECTED metroNIDAZOLE/Normal Saline [Flagyl 500 MG in NS 100 ML Med 02/08/20 17:08 Active ] 500 mg Premix Bag 1 bag IV ONETIME Blood Culture x2 Reflex Set [OM.PC] Stat Oth 02/08/20 15:03 Ordered Medication Orders Metronidazole 500 mg/ Premix 100 mls @ 100 mls/hr IV ONETIME ONE Stop: 02/08/20 18:07 Last Admin: 02/08/20 17:33 Dose: 100 mls/hr Documented by: ROXANA Sodium Chloride (Normal Saline) 1,000 mls @ 125 mls/hr IV ASDIRECTED JES Ciprofloxacin/Dextrose 400 mg/ (Premix) 200 mls @ 200 mls/hr IV Q12H JES Assessment/Plan Comment:: Assessment and Plan: 1. Sepsis secondary to acute diverticulitis: - Admit to med/surg. Patient is hemodynamically stable. Received 1 L IV NS bolus in ER. Lactate level normal. Blood cultures pending. Patient will be started on IV cipro and flagyl. Will start patient on clear liquid diet for now and IV LR's at 100 cc/hr. - COVID19 test negative. CT abd/pelvis showed mild sigmoid diverticulitis. UA pending. - Patient had CTPE on 02/03/20 which was negative for pulmonary embolism. 2. DVT prophylaxis: Lovenox. 3. Past medical history of HTN and insomnia: - Continue home medications.
[2020-02-08] MEDS ORDERED: Ondansetron 4 MG/2 ML SDV IVPUSH PRN (18:06)
[2020-02-08] MEDS ORDERED: Enoxaparin 40 MG/0.4 ML Syringe SUBCUT SCH (18:15)
[2020-02-08] MEDS ORDERED: Ketorolac 30 MG/ML SDV IVPUSH PRN (18:47)
[2020-02-08] MEDS: Lactated Ringers 1,000 ML IV SCH (19:44)
[2020-02-08] MEDS: Ciprofloxacin in D5W 400 MG in Premix Bag 1 BAG IV SCH ×2 (19:55)
[2020-02-08] MEDS: Acetaminophen 325 MG Tab PO PRN (21:02)
[2020-02-08] MEDS: metroNIDAZOLE/Normal Saline 500 MG in Premix Bag 1 BAG IV SCH (22:09)
[2020-02-09] MEDS: metroNIDAZOLE/Normal Saline 500 MG in Premix Bag 1 BAG IV SCH ×2 (01:19→09:29)
[2020-02-09] MEDS: Ciprofloxacin in D5W 400 MG in Premix Bag 1 BAG IV SCH ×2 (05:30)
[2020-02-09 06:47] LABS: BLOOD UREA NITROGEN,BUN 12 mg/dL (7.0-18.0); CARBON DIOXIDE,CO2 22.8 mmol/L (21.0-32.0); CHLORIDE,CL 106 mmol/L (98-107); GLUCOSE RANDOM 98 mg/dL (74-106); POTASSIUM,K 3.4 mmol/L (3.5-5.1); SODIUM,NA 139 mmol/L (136-145)
[2020-02-09] MEDS: Acetaminophen 325 MG Tab PO PRN (07:56)
[2020-02-09] MEDS ORDERED: diphenhydrAMINE 25 MG Cap PO ONE (08:53)
--- NOTE | 2020-02-09 08:55 | PCM.PN ---
- General Info Date of Service: 02/09/20 Subjective Update: Abdominal pain a bit improved, still complains of body aches and reports having stuffy nose from seasonal allergies. Denies any SOB, nausea or vomiting. - Patient Data Vitals - Most Recent: Last Vital Signs Temp 36.5 C 02/09/20 07:00 Pulse 72 02/09/20 07:00 Resp 17 02/09/20 07:00 BP 125/89 02/09/20 07:00 Pulse Ox 94 L 02/09/20 07:00 Weight - Most Recent: 81.42 kg I&O - Last 24 Hours: Intake & Output 02/08/20 02/09/20 02/09/20 22:59 06:59 14:59 Intake Total 2168 Output Total 850 Balance 1318 Lab Results Last 24 Hours: Laboratory Results - last 24 hr 02/08/20 02/08/20 02/08/20 Range/Units 14:53 14:53 14:53 WBC 4.12 (4.0-11.0) K/uL RBC 4.50 (4.30-5.90) M/uL Hgb 14.7 (12.0-16.0) g/dL Hct 43.1 (36.0-46.0) % MCV 95.8 (80.0-98.0) fL MCH 32.7 H (27.0-32.0) pg MCHC 34.1 (31.0-37.0) g/dL RDW Std Deviation 42.5 (28.0-62.0) fl RDW Coeff of Malvin 12 (11.0-15.0) % Plt Count 195 (150-400) K/uL MPV 10.30 (7.40-12.00) fL Neut % (Auto) 85.7 H (48.0-80.0) % Lymph % (Auto) 10.0 L (16.0-40.0) % [place] % (Auto) 3.4 (0.0-15.0) % Eos % (Auto) 0.7 (0.0-7.0) % Baso % (Auto) 0.2 (0.0-1.5) % Neut # (Auto) 3.5 (1.4-5.7) K/uL Lymph # (Auto) 0.4 L (0.6-2.4) K/uL [place] # (Auto) 0.1 (0.0-0.8) K/uL Eos # (Auto) 0.0 (0.0-0.7) K/uL Baso # (Auto) 0.0 (0.0-0.1) K/uL Nucleated RBC % 0.0 /100WBC Nucleated RBCs # 0 K/uL D-Dimer, Quantitative (0.0-0.50) mg/L FEU Lactate 1.9 (0.20-2.00) mmol/L Sodium 135 L (136-145) mmol/L Potassium 3.7 (3.5-5.1) mmol/L Chloride 98 (98-107) mmol/L Carbon Dioxide 23.8 (21.0-32.0) mmol/L BUN 19 H (7.0-18.0) mg/dL Creatinine 1.0 (0.6-1.0) mg/dL Est Cr Clr Drug Dosing 61.23 mL/min Estimated GFR (MDRD) 58.9 ml/min Glucose 107 H (74-106) mg/dL Calcium 9.7 (8.5-10.1) mg/dL Total Bilirubin 0.3 (0.2-1.0) mg/dL AST 4 L (15-37) IU/L ALT 36 (14-63) IU/L Alkaline Phosphatase 90 (46-116) U/L Creatine Kinase 60 (26-308) U/L Total Protein 8.6 H (6.4-8.2) g/dL Albumin 4.1 (3.4-5.0) g/dL Globulin 4.5 H (2.6-4.0) g/dL Albumin/Globulin Ratio 0.9 (0.9-1.6) Lipase 203 (73-393) U/L TSH 3rd Generation (0.36-3.74) uIU/mL HCG, Qual (NEG) Urine Color Urine Appearance Urine pH (5.0-8.0) Ur Specific [place] (1.001-1.035) Urine Protein (NEGATIVE) mg/dL Urine Glucose (UA) (NEGATIVE) mg/dL Urine Ketones (NEGATIVE) mg/dL Urine Occult Blood (NEGATIVE) Urine Nitrite (NEGATIVE) Urine Bilirubin (NEGATIVE) Urine Urobilinogen (<2.0) EU/dL Ur Leukocyte Esterase (NEGATIVE) Urine RBC (0-2/HPF) Urine WBC (0-5/HPF) Ur Epithelial Cells (NONE-FEW) Urine Bacteria (NEGATIVE) COVID-19 (NILAY) (NEGATIVE) 02/08/20 02/08/20 02/08/20 Range/Units 14:53 14:53 14:53 WBC (4.0-11.0) K/uL RBC (4.30-5.90) M/uL Hgb (12.0-16.0) g/dL Hct (36.0-46.0) % MCV (80.0-98.0) fL MCH (27.0-32.0) pg MCHC (31.0-37.0) g/dL RDW Std Deviation (28.0-62.0) fl RDW Coeff of Malvin (11.0-15.0) % Plt Count (150-400) K/uL MPV (7.40-12.00) fL Neut % (Auto) (48.0-80.0) % Lymph % (Auto) (16.0-40.0) % [place] % (Auto) (0.0-15.0) % Eos % (Auto) (0.0-7.0) % Baso % (Auto) (0.0-1.5) % Neut # (Auto) (1.4-5.7) K/uL Lymph # (Auto) (0.6-2.4) K/uL [place] # (Auto) (0.0-0.8) K/uL Eos # (Auto) (0.0-0.7) K/uL Baso # (Auto) (0.0-0.1) K/uL Nucleated RBC % /100WBC Nucleated RBCs # K/uL D-Dimer, Quantitative (0.0-0.50) mg/L FEU Lactate 1.9 (0.20-2.00) mmol/L Sodium (136-145) mmol/L Potassium (3.5-5.1) mmol/L Chloride (98-107) mmol/L Carbon Dioxide (21.0-32.0) mmol/L BUN (7.0-18.0) mg/dL Creatinine (0.6-1.0) mg/dL Est Cr Clr Drug Dosing mL/min Estimated GFR (MDRD) ml/min Glucose (74-106) mg/dL Calcium (8.5-10.1) mg/dL Total Bilirubin (0.2-1.0) mg/dL AST (15-37) IU/L ALT (14-63) IU/L Alkaline Phosphatase (46-116) U/L Creatine Kinase (26-308) U/L Total Protein (6.4-8.2) g/dL Albumin (3.4-5.0) g/dL Globulin (2.6-4.0) g/dL Albumin/Globulin Ratio (0.9-1.6) Lipase (73-393) U/L TSH 3rd Generation 0.40 (0.36-3.74) uIU/mL HCG, Qual NEGATIVE (NEG) Urine Color Urine Appearance Urine pH (5.0-8.0) Ur Specific [place] (1.001-1.035) Urine Protein (NEGATIVE) mg/dL Urine Glucose (UA) (NEGATIVE) mg/dL Urine Ketones (NEGATIVE) mg/dL Urine Occult Blood (NEGATIVE) Urine Nitrite (NEGATIVE) Urine Bilirubin (NEGATIVE) Urine Urobilinogen (<2.0) EU/dL Ur Leukocyte Esterase (NEGATIVE) Urine RBC (0-2/HPF) Urine WBC (0-5/HPF) Ur Epithelial Cells (NONE-FEW) Urine Bacteria (NEGATIVE) COVID-19 (NILAY) (NEGATIVE) 02/08/20 02/08/20 02/08/20 Range/Units 14:53 15:16 15:29 WBC (4.0-11.0) K/uL RBC (4.30-5.90) M/uL Hgb (12.0-16.0) g/dL Hct (36.0-46.0) % MCV (80.0-98.0) fL MCH (27.0-32.0) pg MCHC (31.0-37.0) g/dL RDW Std Deviation (28.0-62.0) fl RDW Coeff of Malvin (11.0-15.0) % Plt Count (150-400) K/uL MPV (7.40-12.00) fL Neut % (Auto) (48.0-80.0) % Lymph % (Auto) (16.0-40.0) % [place] % (Auto) (0.0-15.0) % Eos % (Auto) (0.0-7.0) % Baso % (Auto) (0.0-1.5) % Neut # (Auto) (1.4-5.7) K/uL Lymph # (Auto) (0.6-2.4) K/uL [place] # (Auto) (0.0-0.8) K/uL Eos # (Auto) (0.0-0.7) K/uL Baso # (Auto) (0.0-0.1) K/uL Nucleated RBC % /100WBC Nucleated RBCs # K/uL D-Dimer, Quantitative 2.29 H (0.0-0.50) mg/L FEU Lactate (0.20-2.00) mmol/L Sodium (136-145) mmol/L Potassium (3.5-5.1) mmol/L Chloride (98-107) mmol/L Carbon Dioxide (21.0-32.0) mmol/L BUN (7.0-18.0) mg/dL Creatinine (0.6-1.0) mg/dL Est Cr Clr Drug Dosing mL/min Estimated GFR (MDRD) ml/min Glucose (74-106) mg/dL Calcium (8.5-10.1) mg/dL Total Bilirubin (0.2-1.0) mg/dL AST (15-37) IU/L ALT (14-63) IU/L Alkaline Phosphatase (46-116) U/L Creatine Kinase (26-308) U/L Total Protein (6.4-8.2) g/dL Albumin (3.4-5.0) g/dL Globulin (2.6-4.0) g/dL Albumin/Globulin Ratio (0.9-1.6) Lipase (73-393) U/L TSH 3rd Generation (0.36-3.74) uIU/mL HCG, Qual (NEG) Urine Color YELLOW Urine Appearance CLEAR Urine pH 6.5 (5.0-8.0) Ur Specific [place] <= 1.005 (1.001-1.035) Urine Protein NEGATIVE (NEGATIVE) mg/dL Urine Glucose (UA) NEGATIVE (NEGATIVE) mg/dL Urine Ketones NEGATIVE (NEGATIVE) mg/dL Urine Occult Blood TRACE-INTACT H (NEGATIVE) Urine Nitrite NEGATIVE (NEGATIVE) Urine Bilirubin NEGATIVE (NEGATIVE) Urine Urobilinogen 0.2 (<2.0) EU/dL Ur Leukocyte Esterase NEGATIVE (NEGATIVE) Urine RBC 1-2 (0-2/HPF) Urine WBC 0-1 (0-5/HPF) Ur Epithelial Cells RARE (NONE-FEW) Urine Bacteria RARE (NEGATIVE) COVID-19 (NILAY) NEGATIVE (NEGATIVE) 02/09/20 02/09/20 Range/Units 05:45 05:45 WBC 2.78 L (4.0-11.0) K/uL RBC 3.49 L (4.30-5.90) M/uL Hgb 11.1 L (12.0-16.0) g/dL Hct 33.7 L (36.0-46.0) % MCV 96.6 (80.0-98.0) fL MCH 31.8 (27.0-32.0) pg MCHC 32.9 (31.0-37.0) g/dL RDW Std Deviation 42.5 (28.0-62.0) fl RDW Coeff of Malvin 12 (11.0-15.0) % Plt Count 164 (150-400) K/uL MPV 10.40 (7.40-12.00) fL Neut % (Auto) 71.5 (48.0-80.0) % Lymph % (Auto) 19.1 (16.0-40.0) % [place] % (Auto) 8.6 (0.0-15.0) % Eos % (Auto) 0.4 (0.0-7.0) % Baso % (Auto) 0.4 (0.0-1.5) % Neut # (Auto) 2.0 (1.4-5.7) K/uL Lymph # (Auto) 0.5 L (0.6-2.4) K/uL [place] # (Auto) 0.2 (0.0-0.8) K/uL Eos # (Auto) 0.0 (0.0-0.7) K/uL Baso # (Auto) 0.0 (0.0-0.1) K/uL Nucleated RBC % 0.0 /100WBC Nucleated RBCs # 0 K/uL D-Dimer, Quantitative (0.0-0.50) mg/L FEU Lactate (0.20-2.00) mmol/L Sodium 139 (136-145) mmol/L Potassium 3.4 L (3.5-5.1) mmol/L Chloride 106 (98-107) mmol/L Carbon Dioxide 22.8 (21.0-32.0) mmol/L BUN 12 (7.0-18.0) mg/dL Creatinine 0.8 (0.6-1.0) mg/dL Est Cr Clr Drug Dosing 76.54 mL/min Estimated GFR (MDRD) > 60.0 ml/min Glucose 98 (74-106) mg/dL Calcium 8.6 (8.5-10.1) mg/dL Total Bilirubin 0.3 (0.2-1.0) mg/dL AST 26 (15-37) IU/L ALT 31 (14-63) IU/L Alkaline Phosphatase 63 (46-116) U/L Creatine Kinase (26-308) U/L Total Protein 6.0 L (6.4-8.2) g/dL Albumin 2.8 L (3.4-5.0) g/dL Globulin 3.2 (2.6-4.0) g/dL Albumin/Globulin Ratio 0.9 (0.9-1.6) Lipase (73-393) U/L TSH 3rd Generation (0.36-3.74) uIU/mL HCG, Qual (NEG) Urine Color Urine Appearance Urine pH (5.0-8.0) Ur Specific [place] (1.001-1.035) Urine Protein (NEGATIVE) mg/dL Urine Glucose (UA) (NEGATIVE) mg/dL Urine Ketones (NEGATIVE) mg/dL Urine Occult Blood (NEGATIVE) Urine Nitrite (NEGATIVE) Urine Bilirubin (NEGATIVE) Urine Urobilinogen (<2.0) EU/dL Ur Leukocyte Esterase (NEGATIVE) Urine RBC (0-2/HPF) Urine WBC (0-5/HPF) Ur Epithelial Cells (NONE-FEW) Urine Bacteria (NEGATIVE) COVID-19 (NILAY) (NEGATIVE) Ari Results Last 24 Hours: Microbiology 02/08/20 15:15 Anaerobic Blood Culture - Final Blood - Venous - Lab Draw Med Orders - Current: Current Medications Acetaminophen (Tylenol) 650 mg PO Q4H PRN PRN Reason: Pain (Mild 1-3)/fever Last Admin: 02/09/20 07:56 Dose: 650 mg Documented by: Diphenhydramine HCl (Benadryl) 25 mg PO ONETIME ONE Stop: 02/09/20 08:54 Enoxaparin Sodium (Lovenox) 40 mg SUBCUT Q24H [facility] Last Admin: 02/08/20 21:03 Dose: 40 mg Documented by: Ciprofloxacin/Dextrose 400 mg/ (Premix) 200 mls @ 200 mls/hr IV Q12H [facility] Last Admin: 02/09/20 05:30 Dose: 200 mls/hr Documented by: Metronidazole 500 mg/ Premix 100 mls @ 100 mls/hr IV Q8H [facility] Last Admin: 02/09/20 01:19 Dose: 100 mls/hr Documented by: Lactated Ringer's (Ringers, Lactated) 1,000 mls @ 100 mls/hr IV ASDIRECTED [facility] Last Admin: 02/08/20 19:44 Dose: 100 mls/hr Documented by: Ketorolac Tromethamine (Toradol) 30 mg IVPUSH Q6H PRN PRN Reason: Pain Last Admin: 02/09/20 03:16 Dose: 30 mg Documented by: Ondansetron HCl (Zofran) 4 mg IVPUSH Q4H PRN PRN Reason: Nausea Potassium Chloride (Klor-Con M20) 40 meq PO ONETIME ONE Stop: 02/09/20 09:01 Discontinued Medications Acetaminophen (Tylenol Extra Strength) 1,000 mg PO ONETIME ONE Stop: 02/08/20 16:00 Last Admin: 02/08/20 16:03 Dose: 1,000 mg Documented by: Sodium Chloride (Normal Saline) 1,000 mls @ 999 mls/hr IV STAT ONE Stop: 02/08/20 16:03 Last Admin: 02/08/20 15:18 Dose: 999 mls/hr Documented by: Metronidazole 500 mg/ Premix 100 mls @ 100 mls/hr IV ONETIME ONE Stop: 02/08/20 18:07 Last Admin: 02/08/20 17:33 Dose: 100 mls/hr Documented by: Sodium Chloride (Normal Saline) 1,000 mls @ 125 mls/hr IV ASDIRECTED [facility] Ciprofloxacin/Dextrose 400 mg/ (Premix) 200 mls @ 200 mls/hr IV Q12H [facility] Last Admin: 02/08/20 21:08 Dose: Not Given Documented by: Sodium Chloride (Normal Saline) 1,000 mls @ 100 mls/hr IV STAT [facility] Sodium Chloride (Normal Saline) 1,000 mls @ 999 mls/hr IV BOLUS ONE Stop: 02/08/20 21:02 Last Admin: 02/08/20 20:13 Dose: 999 mls/hr Documented by: Iopamidol (Isovue Multipack-370 (76%)) 100 ml IVPUSH ONETIME ONE Stop: 02/08/20 16:33 Last Admin: 02/08/20 16:32 Dose: 100 ml Documented by: Ketorolac Tromethamine (Toradol) 30 mg IVPUSH ONETIME ONE Stop: 02/08/20 15:04 Last Admin: 02/08/20 15:17 Dose: 30 mg Documented by: Lorazepam (Ativan) 1 mg IVPUSH ONETIME ONE Stop: 02/08/20 15:18 Last Admin: 02/08/20 15:21 Dose: 1 mg Documented by: Morphine Sulfate (Morphine) 2 mg IVPUSH ONETIME ONE Stop: 02/08/20 17:09 Last Admin: 02/08/20 17:32 Dose: 2 mg Documented by: Ondansetron HCl (Zofran) 4 mg IVPUSH ONETIME ONE Stop: 02/08/20 15:04 Last Admin: 02/08/20 15:17 Dose: 4 mg Documented by: - Exam General: Alert, Oriented, Cooperative Lungs: Clear to Auscultation, Normal Respiratory Effort Cardiovascular: Regular Rate, Regular Rhythm GI/Abdominal Exam: Normal Bowel Sounds, Soft, No Distention, Other (mild ttp in LLQ) Extremities: Normal Inspection, No Pedal Edema Sepsis Event Note - Evaluation Sepsis Screening Result: No Definite Risk - Focused Exam Vital Signs: Vital Signs Temp Pulse Resp BP Pulse Ox 02/09/20 07:00 36.5 C 72 17 125/89 94 L 02/09/20 03:00 36.8 C 82 17 112/73 94 L 02/08/20 23:00 36.6 C 74 17 101/65 95 - Problem List Review Problem List Initiated/Reviewed/Updated: Yes - My Orders Last 24 Hours: My Active Orders 02/08/20 Lunch Clear Liquid Diet [DIET] 02/08/20 18:06 Oxygen Therapy [RC] PRN Up ad Mary [RC] ASDIRECTED VTE/DVT Education [RC] PER UNIT ROUTINE Vital Signs [RC] Q4H Acetaminophen [TylenoL] 650 mg PO Q4H PRN Ondansetron [Zofran] 4 mg IVPUSH Q4H PRN Resuscitation Status Routine 02/08/20 18:15 Ciprofloxacin in D5W [Cipro in D5W 400 MG/200 ML] 400 mg Premix Bag 1 bag IV Q12H Enoxaparin [Lovenox] 40 mg SUBCUT Q24H Lactated Ringers [Ringers, Lactated] 1,000 ml IV ASDIRECTED metroNIDAZOLE/Normal Saline [Flagyl 500 MG in NS 100 ML] 500 mg Premix Bag 1 bag IV Q8H 02/08/20 18:47 Ketorolac [Toradol] 30 mg IVPUSH Q6H PRN 02/09/20 08:53 diphenhydrAMINE [Benadryl] 25 mg PO ONETIME ONE 02/09/20 09:00 Potassium Chloride [Klor-Con M20] 40 meq PO ONETIME ONE 02/10/20 05:11 CBC WITH AUTO DIFF [HEME] AM COMPREHENSIVE METABOLIC PN,CMP [CHEM] AM - Plan Plan:: Assessment and Plan: 1. Sepsis secondary to acute diverticulitis: - Patient on IV cipro and flagyl. Blood cultures pending. Continue clear liquid diet for now and IV LR's at 100 cc/hr. Will consider advancing diet later today if tolerating CLD. - COVID19 test negative[address] CT abd/pelvis showed mild sigmoid diverticulitis. UA unremarkable. - Patient had CTPE on 02/03/20 which was negative for pulmonary embolism. 2. DVT prophylaxis: Lovenox. 3. Past medical history of HTN and insomnia: - Continue home medications.
[2020-02-09] MEDS ORDERED: Potassium Chloride 20 MEQ Tab.ER PO ONE (09:00)
[2020-02-09] MEDS: Lactated Ringers 1,000 ML IV SCH (09:26)
--- NOTE | 2020-02-09 13:08 | PCM.DCSUM1 ---
Discharge Summary - Hospital Course Free Text/Narrative:: 50-year-old female admitted for sepsis secondary to acute diverticulitis. She has a PMH of HTN and insomnia. On admission, CT abd/pelvis showed mild sigmoid diverticulitis. UA was unremarkable. CXR unremarkable. Lactic acid normal. COVID19 test negative. Stool cultures pending. Patient was started on IV ciprofloxacin and flagyl, clear liquid diet and IV fluids. Patient was afebrile overnight, remained hemodynamically stable and had normal WBC count. This afternoon, patient requested discharge and reported that her abdominal pain was better and she was able to tolerate PO. She stated she felt well enough to go home with PO antibiotics. Patient was discharged in stable condition on PO ciprofloxacin and PO metronidazole for 9 days to complete a total 10 day course. - Discharge Data Discharge Date: 02/09/20 Discharge Disposition: Home, Self-Care 01 Condition: Stable - Referral to Home Health Primary Care Physician: PCP Not In Area - Patient Instructions Diet: Usual Diet as Tolerated Activity: As Tolerated Notify Provider of: Fever, Increased Pain, Swelling and Redness, Drainage, Nausea and/or Vomiting - Discharge Plan *PRESCRIPTION DRUG MONITORING PROGRAM REVIEWED*: Not Applicable *COPY OF PRESCRIPTION DRUG MONITORING REPORT IN PATIENT JITENDRA: Not Applicable Prescriptions/Med Rec: Ciprofloxacin 500 mg PO BID 9 Days #18 [email or web address] metroNIDAZOLE [Metronidazole] 500 mg PO Q8H 9 Days #27 tablet Home Medications: Home Meds lisinopriL [Lisinopril] 10 mg PO BEDTIME 02/03/20 [History] lisinopriL [Lisinopril] 20 mg PO QAM 02/03/20 [History] ClonazePAM [KlonoPIN] 0 mg PO BEDTIME 02/08/20 [History] Ciprofloxacin 500 mg PO BID 9 Days #18 [email or web address] 02/09/20 [Rx] diphenhydrAMINE [Benadryl] 25 mg PO ASDIRECTED PRN 02/09/20 [History] metroNIDAZOLE [Metronidazole] 500 mg PO Q8H 9 Days #27 tablet 02/09/20 [Rx] Oxygen Therapy Mode: Room Air Forms: ED Department Discharge Referrals: PCP,Not In Area [Primary Care Provider] - - Discharge Summary/Plan Comment DC Time >30 min.: No - Patient Data Vitals - Most Recent: Last Vital Signs Temp 36.3 C 02/09/20 11:00 Pulse 64 02/09/20 11:00 Resp 14 02/09/20 11:00 BP 126/77 02/09/20 11:00 Pulse Ox 95 02/09/20 11:00 Weight - Most Recent: 81.42 kg I&O - Last 24 hours: Intake & Output 02/08/20 02/09/20 02/09/20 22:59 06:59 14:59 Intake Total 2168 Output Total 850 Balance 1318 Lab Results - Last 24 hrs: Laboratory Results - last 24 hr 02/08/20 02/08/20 02/08/20 Range/Units 14:53 14:53 14:53 WBC 4.12 (4.0-11.0) K/uL RBC 4.50 (4.30-5.90) M/uL Hgb 14.7 (12.0-16.0) g/dL Hct 43.1 (36.0-46.0) % MCV 95.8 (80.0-98.0) fL MCH 32.7 H (27.0-32.0) pg MCHC 34.1 (31.0-37.0) g/dL RDW Std Deviation 42.5 (28.0-62.0) fl RDW Coeff of Malvin 12 (11.0-15.0) % Plt Count 195 (150-400) K/uL MPV 10.30 (7.40-12.00) fL Neut % (Auto) 85.7 H (48.0-80.0) % Lymph % (Auto) 10.0 L (16.0-40.0) % [place] % (Auto) 3.4 (0.0-15.0) % Eos % (Auto) 0.7 (0.0-7.0) % Baso % (Auto) 0.2 (0.0-1.5) % Neut # (Auto) 3.5 (1.4-5.7) K/uL Lymph # (Auto) 0.4 L (0.6-2.4) K/uL [place] # (Auto) 0.1 (0.0-0.8) K/uL Eos # (Auto) 0.0 (0.0-0.7) K/uL Baso # (Auto) 0.0 (0.0-0.1) K/uL Nucleated RBC % 0.0 /100WBC Nucleated RBCs # 0 K/uL D-Dimer, Quantitative (0.0-0.50) mg/L FEU Lactate 1.9 (0.20-2.00) mmol/L Sodium 135 L (136-145) mmol/L Potassium 3.7 (3.5-5.1) mmol/L Chloride 98 (98-107) mmol/L Carbon Dioxide 23.8 (21.0-32.0) mmol/L BUN 19 H (7.0-18.0) mg/dL Creatinine 1.0 (0.6-1.0) mg/dL Est Cr Clr Drug Dosing 61.23 mL/min Estimated GFR (MDRD) 58.9 ml/min Glucose 107 H (74-106) mg/dL Calcium 9.7 (8.5-10.1) mg/dL Total Bilirubin 0.3 (0.2-1.0) mg/dL AST 4 L (15-37) IU/L ALT 36 (14-63) IU/L Alkaline Phosphatase 90 (46-116) U/L Creatine Kinase 60 (26-308) U/L Total Protein 8.6 H (6.4-8.2) g/dL Albumin 4.1 (3.4-5.0) g/dL Globulin 4.5 H (2.6-4.0) g/dL Albumin/Globulin Ratio 0.9 (0.9-1.6) Lipase 203 (73-393) U/L TSH 3rd Generation (0.36-3.74) uIU/mL HCG, Qual (NEG) Urine Color Urine Appearance Urine pH (5.0-8.0) Ur Specific [place] (1.001-1.035) Urine Protein (NEGATIVE) mg/dL Urine Glucose (UA) (NEGATIVE) mg/dL Urine Ketones (NEGATIVE) mg/dL Urine Occult Blood (NEGATIVE) Urine Nitrite (NEGATIVE) Urine Bilirubin (NEGATIVE) Urine Urobilinogen (<2.0) EU/dL Ur Leukocyte Esterase (NEGATIVE) Urine RBC (0-2/HPF) Urine WBC (0-5/HPF) Ur Epithelial Cells (NONE-FEW) Urine Bacteria (NEGATIVE) COVID-19 (NILAY) (NEGATIVE) 08/21/20 08/21/20 08/21/20 Range/Units 14:53 14:53 14:53 WBC (4.0-11.0) K/uL RBC (4.30-5.90) M/uL Hgb (12.0-16.0) g/dL Hct (36.0-46.0) % MCV (80.0-98.0) fL MCH (27.0-32.0) pg MCHC (31.0-37.0) g/dL RDW Std Deviation (28.0-62.0) fl RDW Coeff of Malvin (11.0-15.0) % Plt Count (150-400) K/uL MPV (7.40-12.00) fL Neut % (Auto) (48.0-80.0) % Lymph % (Auto) (16.0-40.0) % [place] % (Auto) (0.0-15.0) % Eos % (Auto) (0.0-7.0) % Baso % (Auto) (0.0-1.5) % Neut # (Auto) (1.4-5.7) K/uL Lymph # (Auto) (0.6-2.4) K/uL [place] # (Auto) (0.0-0.8) K/uL Eos # (Auto) (0.0-0.7) K/uL Baso # (Auto) (0.0-0.1) K/uL Nucleated RBC % /100WBC Nucleated RBCs # K/uL D-Dimer, Quantitative (0.0-0.50) mg/L FEU Lactate 1.9 (0.20-2.00) mmol/L Sodium (136-145) mmol/L Potassium (3.5-5.1) mmol/L Chloride (98-107) mmol/L Carbon Dioxide (21.0-32.0) mmol/L BUN (7.0-18.0) mg/dL Creatinine (0.6-1.0) mg/dL Est Cr Clr Drug Dosing mL/min Estimated GFR (MDRD) ml/min Glucose (74-106) mg/dL Calcium (8.5-10.1) mg/dL Total Bilirubin (0.2-1.0) mg/dL AST (15-37) IU/L ALT (14-63) IU/L Alkaline Phosphatase (46-116) U/L Creatine Kinase (26-308) U/L Total Protein (6.4-8.2) g/dL Albumin (3.4-5.0) g/dL Globulin (2.6-4.0) g/dL Albumin/Globulin Ratio (0.9-1.6) Lipase (73-393) U/L TSH 3rd Generation 0.40 (0.36-3.74) uIU/mL HCG, Qual NEGATIVE (NEG) Urine Color Urine Appearance Urine pH (5.0-8.0) Ur Specific [place] (1.001-1.035) Urine Protein (NEGATIVE) mg/dL Urine Glucose (UA) (NEGATIVE) mg/dL Urine Ketones (NEGATIVE) mg/dL Urine Occult Blood (NEGATIVE) Urine Nitrite (NEGATIVE) Urine Bilirubin (NEGATIVE) Urine Urobilinogen (<2.0) EU/dL Ur Leukocyte Esterase (NEGATIVE) Urine RBC (0-2/HPF) Urine WBC (0-5/HPF) Ur Epithelial Cells (NONE-FEW) Urine Bacteria (NEGATIVE) COVID-19 (NILAY) (NEGATIVE) 02/08/20 02/08/20 02/08/20 Range/Units 14:53 15:16 15:29 WBC (4.0-11.0) K/uL RBC (4.30-5.90) M/uL Hgb (12.0-16.0) g/dL Hct (36.0-46.0) % MCV (80.0-98.0) fL MCH (27.0-32.0) pg MCHC (31.0-37.0) g/dL RDW Std Deviation (28.0-62.0) fl RDW Coeff of Malvin (11.0-15.0) % Plt Count (150-400) K/uL MPV (7.40-12.00) fL Neut % (Auto) (48.0-80.0) % Lymph % (Auto) (16.0-40.0) % [place] % (Auto) (0.0-15.0) % Eos % (Auto) (0.0-7.0) % Baso % (Auto) (0.0-1.5) % Neut # (Auto) (1.4-5.7) K/uL Lymph # (Auto) (0.6-2.4) K/uL [place] # (Auto) (0.0-0.8) K/uL Eos # (Auto) (0.0-0.7) K/uL Baso # (Auto) (0.0-0.1) K/uL Nucleated RBC % /100WBC Nucleated RBCs # K/uL D-Dimer, Quantitative 2.29 H (0.0-0.50) mg/L FEU Lactate (0.20-2.00) mmol/L Sodium (136-145) mmol/L Potassium (3.5-5.1) mmol/L Chloride (98-107) mmol/L Carbon Dioxide (21.0-32.0) mmol/L BUN (7.0-18.0) mg/dL Creatinine (0.6-1.0) mg/dL Est Cr Clr Drug Dosing mL/min Estimated GFR (MDRD) ml/min Glucose (74-106) mg/dL Calcium (8.5-10.1) mg/dL Total Bilirubin (0.2-1.0) mg/dL AST (15-37) IU/L ALT (14-63) IU/L Alkaline Phosphatase (46-116) U/L Creatine Kinase (26-308) U/L Total Protein (6.4-8.2) g/dL Albumin (3.4-5.0) g/dL Globulin (2.6-4.0) g/dL Albumin/Globulin Ratio (0.9-1.6) Lipase (73-393) U/L TSH 3rd Generation (0.36-3.74) uIU/mL HCG, Qual (NEG) Urine Color YELLOW Urine Appearance CLEAR Urine pH 6.5 (5.0-8.0) Ur Specific [place] <= 1.005 (1.001-1.035) Urine Protein NEGATIVE (NEGATIVE) mg/dL Urine Glucose (UA) NEGATIVE (NEGATIVE) mg/dL Urine Ketones NEGATIVE (NEGATIVE) mg/dL Urine Occult Blood TRACE-INTACT H (NEGATIVE) Urine Nitrite NEGATIVE (NEGATIVE) Urine Bilirubin NEGATIVE (NEGATIVE) Urine Urobilinogen 0.2 (<2.0) EU/dL Ur Leukocyte Esterase NEGATIVE (NEGATIVE) Urine RBC 1-2 (0-2/HPF) Urine WBC 0-1 (0-5/HPF) Ur Epithelial Cells RARE (NONE-FEW) Urine Bacteria RARE (NEGATIVE) COVID-19 (NILAY) NEGATIVE (NEGATIVE) 02/09/20 02/09/20 Range/Units 05:45 05:45 WBC 2.78 L (4.0-11.0) K/uL RBC 3.49 L (4.30-5.90) M/uL Hgb 11.1 L (12.0-16.0) g/dL Hct 33.7 L (36.0-46.0) % MCV 96.6 (80.0-98.0) fL MCH 31.8 (27.0-32.0) pg MCHC 32.9 (31.0-37.0) g/dL RDW Std Deviation 42.5 (28.0-62.0) fl RDW Coeff of Malvin 12 (11.0-15.0) % Plt Count 164 (150-400) K/uL MPV 10.40 (7.40-12.00) fL Neut % (Auto) 71.5 (48.0-80.0) % Lymph % (Auto) 19.1 (16.0-40.0) % [place] % (Auto) 8.6 (0.0-15.0) % Eos % (Auto) 0.4 (0.0-7.0) % Baso % (Auto) 0.4 (0.0-1.5) % Neut # (Auto) 2.0 (1.4-5.7) K/uL Lymph # (Auto) 0.5 L (0.6-2.4) K/uL [place] # (Auto) 0.2 (0.0-0.8) K/uL Eos # (Auto) 0.0 (0.0-0.7) K/uL Baso # (Auto) 0.0 (0.0-0.1) K/uL Nucleated RBC % 0.0 /100WBC Nucleated RBCs # 0 K/uL D-Dimer, Quantitative (0.0-0.50) mg/L FEU Lactate (0.20-2.00) mmol/L Sodium 139 (136-145) mmol/L Potassium 3.4 L (3.5-5.1) mmol/L Chloride 106 (98-107) mmol/L Carbon Dioxide 22.8 (21.0-32.0) mmol/L BUN 12 (7.0-18.0) mg/dL Creatinine 0.8 (0.6-1.0) mg/dL Est Cr Clr Drug Dosing 76.54 mL/min Estimated GFR (MDRD) > 60.0 ml/min Glucose 98 (74-106) mg/dL Calcium 8.6 (8.5-10.1) mg/dL Total Bilirubin 0.3 (0.2-1.0) mg/dL AST 26 (15-37) IU/L ALT 31 (14-63) IU/L Alkaline Phosphatase 63 (46-116) U/L Creatine Kinase (26-308) U/L Total Protein 6.0 L (6.4-8.2) g/dL Albumin 2.8 L (3.4-5.0) g/dL Globulin 3.2 (2.6-4.0) g/dL Albumin/Globulin Ratio 0.9 (0.9-1.6) Lipase (73-393) U/L TSH 3rd Generation (0.36-3.74) uIU/mL HCG, Qual (NEG) Urine Color Urine Appearance Urine pH (5.0-8.0) Ur Specific [place] (1.001-1.035) Urine Protein (NEGATIVE) mg/dL Urine Glucose (UA) (NEGATIVE) mg/dL Urine Ketones (NEGATIVE) mg/dL Urine Occult Blood (NEGATIVE) Urine Nitrite (NEGATIVE) Urine Bilirubin (NEGATIVE) Urine Urobilinogen (<2.0) EU/dL Ur Leukocyte Esterase (NEGATIVE) Urine RBC (0-2/HPF) Urine WBC (0-5/HPF) Ur Epithelial Cells (NONE-FEW) Urine Bacteria (NEGATIVE) COVID-19 (NILAY) (NEGATIVE) ESVIN Results - Last 24 hrs: Microbiology 02/08/20 15:15 Anaerobic Blood Culture - Final Blood - Venous - Lab Draw Med Orders - Current: Current Medications Acetaminophen (Tylenol) 650 mg PO Q4H PRN PRN Reason: Pain (Mild 1-3)/fever Last Admin: 02/09/20 07:56 Dose: 650 mg Documented by: Enoxaparin Sodium (Lovenox) 40 mg SUBCUT Q24H JES Last Admin: 02/08/20 21:03 Dose: 40 mg Documented by: Ciprofloxacin/Dextrose 400 mg/ (Premix) 200 mls @ 200 mls/hr IV Q12H [facility] Last Admin: 02/09/20 05:30 Dose: 200 mls/hr Documented by: Metronidazole 500 mg/ Premix 100 mls @ 100 mls/hr IV Q8H [facility] Last Admin: 02/09/20 09:29 Dose: 100 mls/hr Documented by: Lactated Ringer's (Ringers, Lactated) 1,000 mls @ 100 mls/hr IV ASDIRECTED [facility] Last Admin: 02/09/20 09:26 Dose: 100 mls/hr Documented by: Ketorolac Tromethamine (Toradol) 30 mg IVPUSH Q6H PRN PRN Reason: Pain Last Admin: 02/09/20 03:16 Dose: 30 mg Documented by: Ondansetron HCl (Zofran) 4 mg IVPUSH Q4H PRN PRN Reason: Nausea Discontinued Medications Acetaminophen (Tylenol Extra Strength) 1,000 mg PO ONETIME ONE Stop: 02/08/20 16:00 Last Admin: 02/08/20 16:03 Dose: 1,000 mg Documented by: Diphenhydramine HCl (Benadryl) 25 mg PO ONETIME ONE Stop: 02/09/20 08:54 Last Admin: 02/09/20 09:27 Dose: Not Given Documented by: Sodium Chloride (Normal Saline) 1,000 mls @ 999 mls/hr IV STAT ONE Stop: 02/08/20 16:03 Last Admin: 02/08/20 15:18 Dose: 999 mls/hr Documented by: Metronidazole 500 mg/ Premix 100 mls @ 100 mls/hr IV ONETIME ONE Stop: 02/08/20 18:07 Last Admin: 02/08/20 17:33 Dose: 100 mls/hr Documented by: Sodium Chloride (Normal Saline) 1,000 mls @ 125 mls/hr IV ASDIRECTED [facility] Ciprofloxacin/Dextrose 400 mg/ (Premix) 200 mls @ 200 mls/hr IV Q12H [facility] Last Admin: 02/08/20 21:08 Dose: Not Given Documented by: Sodium Chloride (Normal Saline) 1,000 mls @ 100 mls/hr IV STAT [facility] Sodium Chloride (Normal Saline) 1,000 mls @ 999 mls/hr IV BOLUS ONE Stop: 02/08/20 21:02 Last Admin: 02/08/20 20:13 Dose: 999 mls/hr Documented by: Iopamidol (Isovue Multipack-370 (76%)) 100 ml IVPUSH ONETIME ONE Stop: 02/08/20 16:33 Last Admin: 02/08/20 16:32 Dose: 100 ml Documented by: Ketorolac Tromethamine (Toradol) 30 mg IVPUSH ONETIME ONE Stop: 02/08/20 15:04 Last Admin: 02/08/20 15:17 Dose: 30 mg Documented by: Lorazepam (Ativan) 1 mg IVPUSH ONETIME ONE Stop: 02/08/20 15:18 Last Admin: 02/08/20 15:21 Dose: 1 mg Documented by: Morphine Sulfate (Morphine) 2 mg IVPUSH ONETIME ONE Stop: 02/08/20 17:09 Last Admin: 02/08/20 17:32 Dose: 2 mg Documented by: Ondansetron HCl (Zofran) 4 mg IVPUSH ONETIME ONE Stop: 02/08/20 15:04 Last Admin: 02/08/20 15:17 Dose: 4 mg Documented by: Potassium Chloride (Klor-Con M20) 40 meq PO ONETIME ONE Stop: 02/09/20 09:01 Last Admin: 02/09/20 09:27 Dose: 40 meq Documented by:
== END 2020-02-09 13:45 | disposition home or self-care (01) ==
LOC: MW.ED 14:38 → MW.MS 17:09
PROVIDERS: ADMIT Internal Medicine; ATTEND Internal Medicine
DX: K57.32 Diverticulitis of large intestine without perforation or abscess without bleeding (principal); A41.9 Sepsis, unspecified organism; M79.10 Myalgia, unspecified site; R79.1 Abnormal coagulation profile; I10 Essential (primary) hypertension; F17.210 Nicotine dependence, cigarettes, uncomplicated; G47.00 Insomnia, unspecified; Z20.828 Contact with and (suspected) exposure to other viral communicable diseases; Z79.899 Other long term (current) drug therapy
CPT/HCPCS: 36415; 71045; 74177; 80053; 81001; 82550; 83605; 83690; 84443; 84703; 85025; 85379; 87040; 87635; 93005; 96361; 96374; 96375; 99285; A9270; J0744; J1650; J1885; J2060; J2270; J2405; J3490; J7030; J7120; Q9967; 96365; 96366; 96367; 96372; 96376; 99284; G0378; U0002

== ENCOUNTER 2021-06-18 14:14 | Emergency (ER) | payer BC ==
[2021-06-18] MEDS ORDERED: predniSONE 20 MG Tab PO ONE (16:29)
[2021-06-18] MEDS ORDERED: Diazepam 5 MG Tab PO ONE (16:33)
--- NOTE | 2021-06-18 16:37 | EDM.PDOC ---
ED HPI GENERAL MEDICAL PROBLEM - General Chief Complaint: Lower Extremity Injury/Pain Stated Complaint: NUMBNESS LEFT LEG Time Seen by Provider: 06/18/21 16:16 Source of Information: Reports: Patient History Limitations: Reports: No Limitations - History of Present Illness INITIAL COMMENTS - FREE TEXT/NARRATIVE: HISTORY AND PHYSICAL: History of present illness: The patient is a 51-year-old female who presents to the emergency department with complaints of lower back pain that shoots down her anterior and posterior thigh that extends to her foot. The patient states it started 90 days ago when she did started having some anterior leg pain. She states that she consulted her [id number] who is a nurse practitioner and attempted to tap out the pain. She did follow-up with her primary care and has an MRI scheduled for June 24, 2021. The patient states that she woke up Tuesday and the pain was of her posterior leg sciatica type pain and she could not put her foot down to walk. She states that she attempted to go to work but just cannot do it. She did go to a walk-in clinic on Tuesday and was prescribed gabapentin which she has been taking 900 mg 3 times daily and this is not working. The patient was also prescribed Soma for nighttime use to help with sleep. The patient states she is able to sleep but just cannot tolerate the pain. Patient denies any fever, chills, headache, change in vision, syncope or near syncope. Denies any chest pain, back pain, shortness of breath or cough. Denies any abdominal pain, nausea, vomiting, diarrhea, constipation or dysuria. Has not noted any blood in urine or stool. Patient has been eating and drinking appropriately. Review of systems: As per history of present illness and below otherwise all systems reviewed and negative. Past medical history: As per history of present illness and as reviewed below otherwise noncontributory. Surgical history: As per history of present illness and as reviewed below otherwise no ncontributory. Social history: See social history for further information Family history: As per history of present illness and as reviewed below otherwise noncontributory. Physical exam: General: Well developed and well nourished. Alert and orientated x 3. Nontoxic in appearance and in no acute distress. Vital signs are stable and have been reviewed by me. Nursing notes were reviewed. HEENT: Atraumatic, normocephalic, pupils equal and reactive bilaterally, negative for conjunctival pallor or scleral icterus, mucous membranes moist, TMs normal bilaterally, throat clear, neck supple, nontender, trachea midline. No drooling or trismus noted. No meningeal signs. No hot potato voice noted. Lungs: Clear to auscultation bilaterally. No wheezes, rales, or rhonchi. Chest nontender. Normal work of breathing, no accessory muscles used. Heart: S1S2, regular rate and rhythm without overt murmur, gallops, or rubs. No JVD. No peripheral edema Abdomen: Soft, nondistended, nontender. Normoactive bowel sounds. Negative for masses or costovertebral tenderness. Back: Neck and back have no deformities, external skin changes, or signs of trauma. Curvature of the cervical, thoracic, and lumbar spine are within normal limits. Bony features of the shoulders and hips are of equal height bilaterally. Posture is upright, gait is smooth, steady, and within normal limits. No tenderness is noted on palpation of the spinous processes. Spinous processes are midline. Cervical, thoracic, and lumbar paraspinal muscles are not tender and are without spasm.Mild discomfort is noted with flexion, extension, and [id number] rotation of the cervical spine, full range of motion is noted. Decreased range of motion including flexion, extension, and [id number] rotation of the thoracic and lumbar spine are noted with discomfort. Straight leg raise test is positive left leg. Sensation to the upper and lower extremities is normal bilaterally. No clonus is noted. 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 Dorsi/plantar flexion is normal bilaterally. Skin: Intact, warm, dry. No lesions or rashes noted. Hematologic: No petechiae or purpra. Mucosa appropriate color and normal nail bed color and refill. Extremities: Atraumatic, moves all extremities per self without difficulty or deficits, negative for cords or calf pain. Neurovascular unremarkable. Neuro: Awake, alert, oriented. Cranial nerves II through XII unremarkable. Cerebellum unremarkable. Motor and sensory unremarkable throughout. Exam nonfocal. Psychiatric: Mood and affect are appropriate. Normal thought process. Answering questions appropriately. Notes: *This patient was seen and evaluated during the 2019 SARS-CoV-2 novel coronavirus pandemic period. Community viral transmission is ongoing at time of this encounter and the emergency department is operating under pandemic response procedures. Stated above the patient is a 51-year-old female who presents with lower left sciatic type pain. She has an MRI scheduled for June 24, 2021. I will order a CT for today's purposes. I will treat the patient's pain as this appears to be sciatica with prednisone and Valium. The patient is agreeable with this. Lumbar CT: 1. No acute fractures involving the lumbar spine. 2. Postsurgical changes of mature L5-S1 anterior/interbody fusion, without complication. 3. Lumbar spondylosis with widespread disc degeneration and several mild de generative subluxations and coronal says sagittal plane. Moderate neural foraminal stenosis at L3-4/L4-5 on the left at L5-S1 on the right. The patient remains in pain and I gave her [place] 325/5 in the emergency department. I will prescribe Valium 5 mg p.o. twice daily for 5 days and prednisone 80 mg daily for 5 days along with 2 days worth of [place] 5/25. I have talked with the patient about today's findings, in addition to providing specific details for plan of care. Reassessment at the time of disposition demonstrates that the patient is in no acute distress. The patient is stable for discharge, counseling was provided and we discussed in great detail signs and symptoms that would prompt them to return to the Emergency Department. Medication, follow up and supportive care measures were reviewed and discussed. Voices understanding and is agreeable to plan of care. Denies any further questions or concerns at this time. Diagnostics: Lumbar CT Therapeutics: Prednisone, Valium Prescription: Diazepam 5 mg p.o. twice daily for 5 days, [place] 325/5 every 4 hours p.o. #12, prednisone 80 mg daily for 5 days Impression: Lumbar pain with radiculopathy Plan: 1. You were evaluated today on an emergent basis. Your needs of lower back pain was evaluated with a CT which showed 1. No acute fractures involving the lumbar spine. 2. Postsurgical changes of mature L5-S1 anterior/interbody fusion, without complication. 3. Lumbar spondylosis with widespread disc degeneration and several mild degenerative subluxations and coronal says sagittal plane. Moderate neural foraminal stenosis at L3-4/L4-5 on the left at L5-S1 on the right. You were treated in the emergency room with his own, Valium, and [place]. It will take several days for the prednisone to decrease the inflammation and d ecrease the pain. Please take the prednisone, Valium and [place]. Do not double up on your medications as this could be very detrimental. Be sure to keep your MRI appointment on June 24, 2021. As we discussed if you would lose control of your bowel or bladder and have numbness please return to the emergency department. I gave you two hand written scripts for Diazepam 5mg by mouth twice daily for 5 days, [place] 325/5mg by mouth for pain. Prednisone 80 mg daily for 5 days was sent to [facility]. 2. You can alternate Tylenol and ibuprofen as needed for pain and fever management. 3. We encourage you to follow up with your primary care provider and/or recommended specialist in the next few days for re-evaluation and further care/management. 4. If your symptoms should worsen, new symptoms develop or any of the signs and symptoms we discussed should arise please return to the emergency room or call 911 (if needed). Definitive disposition and diagnosis as appropriate pending reevaluation and review of above. Left Leg Pain Score (Numeric/FACES): 10 - Related Data Allergies Allergy/AdvReac Type Severity Reaction Status Date / Time No Known Allergies Allergy Verified 06/18/21 15:33 Home Meds: Home Meds lisinopriL [Lisinopril] 10 mg PO BEDTIME 02/03/20 [History] lisinopriL [Lisinopril] 20 mg PO QAM 02/03/20 [History] Gabapentin [Neurontin] 300 mg PO DAILY 06/18/21 [History] carisoprodoL [Carisoprodol] 250 mg PO DAILY 06/18/21 [History] hydroCHLOROthiazide [Hydrochlorothiazide] 12.5 mg PO DAILY 06/18/21 [History] predniSONE 80 mg PO DAILY 4 Days #16 tab 06/18/21 [Rx] Past Medical History Cardiovascular History: Reports: Hypertension Gastrointestinal History: Reports: None Genitourinary History: Reports: None 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 Musculoskeletal History: Reports: Back Pain, Chronic Psychiatric History: Reports: Other (See Below) Other Psychiatric History: sleep disturbance - Past Surgical History Cardiovascular Surgical History: Reports: None GI Surgical History: Reports: Other (See Below) Other GI Surgeries/Procedures: hernia repair x 3 Female Surgical History: Reports: Other (See Below) Other Female Surgeries/Procedures: ovarian cyst rupture Musculoskeletal Surgical History: Reports: Other (See Below) Other Musculoskeletal Surgeries/Procedures:: back and neck pain Social & Family History - Family History Family Medical History: No Pertinent Family History - Tobacco Use Tobacco Use Status *Q: Never Tobacco User - Caffeine Use Caffeine Use: Reports: Soda - Recreational Drug Use Recreational Drug Use: Yes Recreational Drug Type: Reports: Marijuana/Hashish Review of Systems - Review of Systems Review Of Systems: Comprehensive ROS is negative, except as noted in HPI. ED EXAM, GENERAL - Physical Exam Exam: See Below (See dictation) Course - Vital Signs Last Recorded V/S: Last Vital Signs Temp 98.1 F 06/18/21 18:39 Pulse 73 06/18/21 18:39 Resp 18 06/18/21 18:39 BP 121/74 06/18/21 18:39 Pulse Ox 98 06/18/21 18:39 - Orders/Labs/Meds Meds: Medications Discontinued Medications Generic Name Dose Route Start Last Admin Trade Name [place] PRN Reason Stop Dose Admin Hydrocodone Bitart/Acetaminophen 1 tab 06/18/21 17:57 06/18/21 18:07 Acetaminophen/Hydrocodone 325-5 Mg Tab PO 06/18/21 17:58 1 tab ONETIME ONE Administration Diazepam 10 mg 06/18/21 16:33 06/18/21 16:44 Diazepam 5 Mg Tab PO 06/18/21 16:34 10 mg ONETIME ONE Administration Prednisone 80 mg 06/18/21 16:29 06/18/21 16:44 Prednisone 20 Mg Tab PO 06/18/21 16:30 80 mg ONETIME ONE Administration Departure - Departure Time of Disposition: 18:16 Disposition: Home, Self-Care 01 Condition: Good Clinical Impression: Lumbar back pain with radiculopathy affecting left lower extremity - Discharge Information *PRESCRIPTION DRUG MONITORING PROGRAM REVIEWED*: No *COPY OF PRESCRIPTION DRUG MONITORING REPORT IN PATIENT JITENDRA: No Prescriptions: predniSONE 80 mg PO DAILY 4 Days #16 tab Instructions: Radicular Pain Referrals: PCP,None [Primary Care Provider] - Forms: ED Department Discharge Additional Instructions: The following information is given to patients seen in the emergency department who are being discharged to home. This information is to outline your options for follow-up care. We provide all patients seen in our emergency department with a follow-up referral. The need for follow-up, as well as the timing and circumstances, are variable depending upon the specifics of your emergency department visit. If you don't have a primary care physician on staff, we will provide you with a referral. We always advise you to contact your personal physician following an emergency department visit to inform them of the circumstance of the visit and for follow-up with them and/or the need for any referrals to a consulting specialist. The emergency department will also refer you to a specialist when appropriate. This referral assures that you have the opportunity for follow-up care with a specialist. All of these measure are taken in an effort to provide you with optimal care, which includes your follow-up. Under all circumstances we always encourage you to contact your private physician who remains a resource for coordinating your care. When calling for follow-up care, please make the office aware that this follow-up is from your recent emergency room visit. If for any reason you are refused follow-up, please contact the [facility] Department at and asked to speak to the emergency department charge nurse. [facility] [address] [place] [address] [place] [address] Plan: 1. You were evaluated today on an emergent basis. Your needs of lower back pain was evaluated with a CT which showed 1. No acute fractures involving the lumbar spine. 2. Postsurgical changes of mature L5-S1 anterior/interbody fusion, without complication. 3. Lumbar spondylosis with widespread disc degeneration and several mild degenerative subluxations and coronal says sagittal plane. Mo derate neural foraminal stenosis at L3-4/L4-5 on the left at L5-S1 on the right. You were treated in the emergency room with his own, Valium, and [place]. It will take several days for the prednisone to decrease the inflammation and decrease the pain. Please take the prednisone, Valium and [place]. Do not double up on your medications as this could be very detrimental. Be sure to keep your MRI appointment on June 24, 2021. As we discussed if you would lose control of your bowel or bladder and have numbness please return to the emergency department. I gave you two hand written scripts for Diazepam 5mg by mouth twice daily for 5 days, [place] 325/5mg by mouth for pain. Prednisone 80 mg daily for 5 days was sent to [facility]. 2. You can alternate Tylenol and ibuprofen as needed for pain and fever management. 3. We encourage you to follow up with your primary care provider and/or recommended specialist in the next few days for re-evaluation and further care/management. 4. If your symptoms should worsen, new symptoms develop or any of the signs and symptoms we discussed should arise please return to the emergency room or call 911 (if needed). Sepsis Event Note (ED) - Evaluation Sepsis Screening Result: No Definite Risk
--- NOTE | 2021-06-18 17:48 | CT ---
INDICATION: Back pain. TECHNIQUE: CT of the lumbar spine without contrast. Coronal and sagittal reformats are included. COMPARISON: None. FINDINGS: Five lumbar type vertebral bodies, with the last fully formed disc space referred to as L5-S1. No acute fractures or other acute osseous abnormalities. Straightening of the typical lumbar lordosis. Mild dextroconvex lumbar scoliosis. Mild anterolisthesis at L3-4. Slight rightward lateral listhesis at L3-4 and L4-5. Postsurgical changes L5-S1 anterior/interbody fusion. No hardware complication. Disc/endplates: Multilevel lumbar disc degeneration at the non operative levels, with moderately advanced disc height loss at L1-2 to the right of midline with associated vacuum phenomenon and subchondral sclerosis. Moderate disc height loss with endplate remodeling at L2-3 and L3-4. Large limbus vertebra and accompanying Schmorl`s node deformities at the anterior superior endplates. L4-5 moderate disc height loss and disc vacuum phenomenon. Facets: Multilevel mild facet arthrosis throughout the lumbar spine. Spinal canal/neural foramina: No visible high-grade spinal canal stenosis. At least moderate neural foraminal stenosis at L3-4/L4-5 on the left, and at L5-S1 on the right. Soft tissues: No paraspinous or retroperitoneal mass. IMPRESSION: 1. No acute fractures involving the lumbar spine. 2. Postsurgical changes of mature L5-S1 anterior/interbody fusion, without complication. 3. Lumbar spondylosis with widespread disc degeneration and several mild degenerative subluxations and coronal says sagittal plane. Moderate neural foraminal stenosis at L3-4/L4-5 on the left at L5-S1 on the right. Please note that all CT scans at this facility use dose modulation, iterative reconstruction, and/or weight-based dosing when appropriate to reduce radiation dose to as low as reasonably achievable. Dictated by Stephen Brar MD @ 06/18/2021 5:47:35 PM (Electronically Signed)
[2021-06-18] MEDS ORDERED: Acetaminophen/HYDROcodone 325-5 MG Tab PO ONE (17:57)
== END 2021-06-18 18:39 | disposition home or self-care (01) ==
LOC: MW.ED 14:14
DX: M54.16 Radiculopathy, lumbar region (principal); I10 Essential (primary) hypertension; Z79.899 Other long term (current) drug therapy
CPT/HCPCS: 72131; 99283; A9270

== ENCOUNTER 2021-10-16 07:36 | Day surgery (SDC) | payer BC ==
[~2021-10-16 07:36] MED LIST: Lactated Ringers 1,000 ML IV SCH
[2021-10-16] MEDS ORDERED: Propofol 200 MG/20 ML SDV ONE (08:13)
[2021-10-16] MEDS ORDERED: fentaNYL 100 MCG/2 ML SDV ONE (08:13)
== END 2021-10-16 10:47 | disposition home or self-care (01) ==
LOC: MW.SDS 07:36
PROVIDERS: ATTEND Surgery
DX: Z12.11 Encounter for screening for malignant neoplasm of colon (principal); K57.30 Diverticulosis of large intestine without perforation or abscess without bleeding; I10 Essential (primary) hypertension; G47.00 Insomnia, unspecified; K21.9 Gastro-esophageal reflux disease without esophagitis; E66.9 Obesity, unspecified; Z68.33 Body mass index [BMI] 33.0-33.9, adult; Z91.048 Other nonmedicinal substance allergy status; Z79.899 Other long term (current) drug therapy; Z87.891 Personal history of nicotine dependence; Z86.010 Personal history of colon polyps; Z87.19 Personal history of other diseases of the digestive system
CPT/HCPCS: 45380; J2704; J3010; J7120; 00812

== ENCOUNTER 2022-11-29 11:18 | Emergency (ER) | payer BC ==
[2022-11-29] MEDS ORDERED: Sodium Chloride 0.9% 10 ML Syringe FLUSH PRN (13:08)
[2022-11-29] MEDS ORDERED: Morphine 4 MG/ML Syringe IVPUSH STA (13:08)
[2022-11-29] MEDS ORDERED: Ondansetron 4 MG/2 ML SDV IVPUSH STA (13:08)
[2022-11-29] MEDS ORDERED: Sodium Chloride 0.9% 2.5 ML Syringe FLUSH PRN (13:08)
[2022-11-29] MEDS ORDERED: Sodium Chloride 0.9% 1,000 ML IV STA ×2 (13:08→14:51)
[2022-11-29 13:58] LABS: BASOPHILS PERCENT AUTO 0.1 % (0.0-1.5); EOSINOPHILS ABSOLUTE AUTO 0.1 K/uL (0.0-0.7); EOSINOPHILS PERCENT AUTO 0.7 % (0.0-7.0); LYMPHOCYTES ABSOLUTE AUTO 0.6 K/uL (0.6-2.4); LYMPHOCYTES PERCENT AUTO 6.3 % (16.0-40.0); MEAN CORPUSCULAR HEMOGLOBIN 31.1 pg (27.0-32.0); MEAN CORPUSCULAR HGB CONC 34.1 g/dL (31.0-37.0); MEAN CORPUSCULAR VOLUME 91.1 fL (80.0-98.0); MONOCYTES ABSOLUTE AUTO 0.5 K/uL (0.0-0.8); MONOCYTES PERCENT AUTO 4.9 % (0.0-15.0); NEUTROPHILS ABSOLUTE AUTO 8.7 K/uL (1.4-5.7); NRBC ABSOLUTE 0 K/uL; PLATELET COUNT,PLT 241 K/uL (150-400); WHITE BLOOD CELL COUNT,WBC 9.89 K/uL (4.0-11.0)
[2022-11-29 14:00] LABS: APPEARANCE,URINE SLT CLOUDY; COLOR,URINE ORANGE; GLUCOSE,URINE NEGATIVE (NEGATIVE); KETONES,URINE TRACE mg/dL (NEGATIVE); LEUKOCYTE ESTERASE,URINE TRACE (NEGATIVE); NITRITE,URINE POSITIVE (NEGATIVE); OCCULT BLOOD,URINE NEGATIVE (NEGATIVE); PH,URINE 6.5 (5.0-8.0); PROTEIN,URINE 100 mg/dL (NEGATIVE)
[2022-11-29 14:04] LABS: BILIRUBIN,URINE LARGE (NEGATIVE)
[2022-11-29 14:10] LABS: BACTERIA,URINE 2+ (NEGATIVE); EPITHELIAL CELLS,URINE MANY (NONE-FEW); MUCUS,URINE LIGHT (NONE-MOD); RBC,URINE 0-2 (0-2/HPF)
[2022-11-29 14:20] LABS: ALANINE AMINOTRANSFERASE,ALT 258 IU/L (14-63); ALBUMIN 3.7 g/dL (3.4-5.0); ALKALINE PHOSPHATASE 111 U/L (46-116); ASPARTATE AMNIOTRANSFERASE,AST 189 IU/L (15-37); BILIRUBIN TOTAL 3.7 mg/dL (0.2-1.0); BLOOD UREA NITROGEN,BUN 12 mg/dL (7.0-18.0); CARBON DIOXIDE,CO2 21.8 mmol/L (21.0-32.0); CHLORIDE,CL 104 mmol/L (98-107); GLUCOSE RANDOM 81 mg/dL (74-106); POTASSIUM,K 3.5 mmol/L (3.5-5.1); PROTEIN TOTAL,TP 7.5 g/dL (6.4-8.2); SODIUM,NA 140 mmol/L (136-145)
[2022-11-29 14:21] LABS: ESTIMATED GFR 68 mL/min (>60)
[2022-11-29] MEDS ORDERED: Piperacillin/Tazobactam 3.375 GM in Sodium Chloride 0.9% 100 ML IV STA (14:51)
[2022-11-29] MEDS ORDERED: Iopamidol 755 MG/ML 500 ML Multipack Bottle IVPUSH ONE (14:52)
== END 2022-11-29 18:25 | disposition home or self-care (01) ==
LOC: MW.ED 11:18
DX: N30.01 Acute cystitis with hematuria (principal); R74.01 Elevation of levels of liver transaminase levels; E80.7 Disorder of bilirubin metabolism, unspecified; I10 Essential (primary) hypertension; Z79.899 Other long term (current) drug therapy
CPT/HCPCS: 36415; 74177; 76705; 80053; 81001; 81025; 83690; 85025; 87086; 96361; 96365; 96375; 99284; J2270; J2405; J2543; J3490; J7030; Q9967

== ENCOUNTER 2023-02-17 10:34 | Day surgery (SDC) | payer BC ==
[~2023-02-17 10:34] MED LIST changes: +Sodium Chloride 0.9% 10 ML Syringe FLUSH PRN; +Sodium Chloride 0.9% 2.5 ML Syringe FLUSH PRN; +Sodium Chloride 0.9% 20 ML SDV IV PRN
[2023-02-17] MEDS ORDERED: propofoL 50 ML ONE (10:52)
[2023-02-17] MEDS ORDERED: Lidocaine 2% 5 ML SDV ONE (11:18)
== END 2023-02-17 12:14 | disposition home or self-care (01) ==
LOC: MW.SDS 10:34
PROVIDERS: ATTEND Surgery
DX: K63.5 Polyp of colon (principal); K44.9 Diaphragmatic hernia without obstruction or gangrene; K57.30 Diverticulosis of large intestine without perforation or abscess without bleeding; K63.89 Other specified diseases of intestine; K21.9 Gastro-esophageal reflux disease without esophagitis; I10 Essential (primary) hypertension; G47.00 Insomnia, unspecified; G43.909 Migraine, unspecified, not intractable, without status migrainosus; F41.9 Anxiety disorder, unspecified; Z87.19 Personal history of other diseases of the digestive system; Z79.899 Other long term (current) drug therapy; Z87.891 Personal history of nicotine dependence; Z88.8 Allergy status to other drugs, medicaments and biological substances
CPT/HCPCS: 43239; 45380; J2704; J7120; 00813; J3490

== ENCOUNTER 2023-05-09 17:48 | Emergency (ER) | payer BC ==
[2023-05-09] MEDS ORDERED: Albuterol/Ipratropium 3.0-0.5 MG/3 ML Neb Soln NEB ONE (18:03)
[2023-05-09 20:03] LABS: CORONAVIRUS COVID-19 NAA NEGATIVE (NEGATIVE); INFLUENZA A NAA NEGATIVE (NEGATIVE); INFLUENZA B NAA NEGATIVE (NEGATIVE)
== END 2023-05-09 20:26 | disposition home or self-care (01) ==
LOC: MW.ED 17:48
DX: R06.02 Shortness of breath (principal); R05.9 Cough, unspecified; I10 Essential (primary) hypertension; K21.9 Gastro-esophageal reflux disease without esophagitis; Z79.899 Other long term (current) drug therapy; Z91.048 Other nonmedicinal substance allergy status
CPT/HCPCS: 0240U; 71045; 99285; 99283; J7620-GY

== ENCOUNTER 2023-06-27 08:54 | Emergency (ER) | payer BC ==
[2023-06-27] MEDS ORDERED: Ondansetron 4 MG/2 ML SDV IVPUSH ONE (09:41)
[2023-06-27] MEDS ORDERED: Sodium Chloride 0.9% 1,000 ML IV ONE (09:41)
[2023-06-27] MEDS ORDERED: Ketorolac 30 MG/ML SDV IVPUSH ONE (09:41)
[2023-06-27 10:30] LABS: BASOPHILS ABSOLUTE AUTO 0.02 K/uL (0.00-0.20); BASOPHILS PERCENT AUTO 0.2 % (0.0-1.0); EOSINOPHILS ABSOLUTE AUTO 0.02 K/uL (0.00-0.45); EOSINOPHILS PERCENT AUTO 0.2 % (0.0-6.0); HEMOGLOBIN 15.5 g/dL (12.0-16.0); IMMATURE GRAN ABSOLUTE AUTO 0.01 K/uL (0.00-0.05); IMMATURE GRAN PERCENT AUTO 0.1 % (0.0-0.4); LYMPHOCYTES ABSOLUTE AUTO 1.14 K/uL (1.00-4.80); LYMPHOCYTES PERCENT AUTO 13.8 % (24.0-44.0); MEAN CORPUSCULAR HEMOGLOBIN 32.2 pg (28.0-32.0); MEAN CORPUSCULAR HGB CONC 34.4 g/dL (32.0-36.0); MEAN CORPUSCULAR VOLUME 93.4 fL (83.0-99.0); MEAN PLATELET VOLUME 10.3 fL (9.4-12.3); MONOCYTES ABSOLUTE AUTO 0.51 K/uL (0.00-0.80); MONOCYTES PERCENT AUTO 6.2 % (0.0-8.0); NEUTROPHILS ABSOLUTE AUTO 6.59 K/uL (1.80-7.70); NEUTROPHILS PERCENT AUTO 79.5 % (41.0-71.0); PLATELET COUNT,PLT 262 K/uL (150-400); RED BLOOD CELL COUNT 4.82 M/uL (4.10-5.30); WHITE BLOOD CELL COUNT,WBC 8.29 K/uL (3.9-11.3)
[2023-06-27 10:58] LABS: A/G RATIO 0.9 (0.9-1.6); BILIRUBIN TOTAL 0.4 mg/dL (0.2-1.0); CALCIUM 10.4 mg/dL (8.5-10.1); CARBON DIOXIDE,CO2 26.4 mmol/L (21.0-32.0); CREATININE 0.9 mg/dL (0.6-1.0); EST CRCL DRUG DOSING (CG) 65.8 mL/min; POTASSIUM,K 4.2 mmol/L (3.5-5.1); PROTEIN TOTAL,TP 8.4 g/dL (6.4-8.2)
[2023-06-27] MEDS ORDERED: Acetaminophen 500 MG Tab PO ONE (11:01)
[2023-06-27] MEDS ORDERED: Alum Hydro/Mag Hydro/Simeth XS 15 ML, Metoclopramide 5 MG, Lidocaine 2% 5 ML PO ONE ×3 (11:01)
[2023-06-27 11:43] LABS: APPEARANCE,URINE SLT CLOUDY; COLOR,URINE YELLOW; GLUCOSE,URINE NEGATIVE (NEGATIVE); KETONES,URINE 15 mg/dL (NEGATIVE); LEUKOCYTE ESTERASE,URINE TRACE (NEGATIVE); NITRITE,URINE NEGATIVE (NEGATIVE); OCCULT BLOOD,URINE NEGATIVE (NEGATIVE); PH,URINE 6.5 (5.0-8.0); PROTEIN,URINE 30 mg/dL (NEGATIVE); UROBILINOGEN,URINE 0.2 EU/dL (<2.0)
[2023-06-27 12:06] LABS: BILIRUBIN,URINE SMALL (NEGATIVE)
[2023-06-27 12:08] LABS: EPITHELIAL CELLS,URINE MODERATE (NONE-FEW); RBC,URINE 0-3 (0-2/HPF)
== END 2023-06-27 12:46 | disposition home or self-care (01) ==
LOC: MW.ED 08:54
DX: R11.2 Nausea with vomiting, unspecified (principal); Z91.048 Other nonmedicinal substance allergy status
CPT/HCPCS: 36415; 80053; 81001; 83690; 85025; 87086; 96361; 96374; 96375; 99284; A9270; J1885; J2405; J7030

== ENCOUNTER 2023-09-04 16:53 | Emergency (ER) | payer BC ==
[2023-09-04] MEDS: Sodium Chloride 0.9% 1,000 ML IV ONE (17:26)
[2023-09-04] MEDS: Ketorolac 30 MG/ML SDV IVPUSH ONE (17:26)
[2023-09-04] MEDS: HYDROmorphone 2 MG/ML Syringe IVPUSH ONE (17:26)
== END 2023-09-04 18:06 | disposition home or self-care (01) ==
LOC: MW.ED 16:53
DX: G89.29 Other chronic pain (principal); M54.50 Low back pain, unspecified; I10 Essential (primary) hypertension; Z79.899 Other long term (current) drug therapy; Z91.048 Other nonmedicinal substance allergy status
CPT/HCPCS: 96361; 96374; 96375; 99283; J1170; J1885; J7030; 99284

== ENCOUNTER 2023-09-09 10:09 | Emergency (ER) | payer BC | END 2023-09-09 11:26 | disposition home or self-care (01) | LOC: MW.ED 10:09 | DX: Z76.0 Encounter for issue of repeat prescription (principal); M54.50 Low back pain, unspecified; I10 Essential (primary) hypertension; Z79.899 Other long term (current) drug therapy; Z91.048 Other nonmedicinal substance allergy status | CPT/HCPCS: 99281; 99283 ==

== ENCOUNTER 2023-12-27 17:01 | Emergency (ER) | payer BC ==
[2023-12-27] MEDS: Ketorolac 30 MG/ML SDV IVPUSH ONE (17:38)
[2023-12-27] MEDS: Ondansetron 4 MG/2 ML SDV IVPUSH ONE (17:38)
[2023-12-27] MEDS: Famotidine 20 MG/2 ML SDV IVPUSH ONE (17:38)
[2023-12-27] MEDS: Sodium Chloride 0.9% 1,000 ML IV ONE (17:38)
[2023-12-27] MEDS: Sodium Chloride 0.9% 10 ML Syringe FLUSH PRN (17:39)
[2023-12-27] MEDS: Sodium Chloride 0.9% 2.5 ML Syringe FLUSH PRN (17:39)
[2023-12-27 17:43] LABS: BASOPHILS ABSOLUTE AUTO 0.01 K/uL (0.00-0.20); BASOPHILS PERCENT AUTO 0.2 % (0.0-1.0); EOSINOPHILS ABSOLUTE AUTO 0.12 K/uL (0.00-0.45); EOSINOPHILS PERCENT AUTO 1.9 % (0.0-6.0); HEMATOCRIT 38.3 % (37.0-47.0); HEMOGLOBIN 13.2 g/dL (12.0-16.0); IMMATURE GRAN ABSOLUTE AUTO 0.01 K/uL (0.00-0.05); IMMATURE GRAN PERCENT AUTO 0.2 % (0.0-0.4); LYMPHOCYTES ABSOLUTE AUTO 0.41 K/uL (1.00-4.80); LYMPHOCYTES PERCENT AUTO 6.4 % (24.0-44.0); MEAN CORPUSCULAR HEMOGLOBIN 32.6 pg (28.0-32.0); MEAN CORPUSCULAR HGB CONC 34.5 g/dL (32.0-36.0); MEAN CORPUSCULAR VOLUME 94.6 fL (83.0-99.0); MEAN PLATELET VOLUME 9.8 fL (9.4-12.3); MONOCYTES ABSOLUTE AUTO 0.08 K/uL (0.00-0.80); MONOCYTES PERCENT AUTO 1.2 % (0.0-8.0); NEUTROPHILS ABSOLUTE AUTO 5.79 K/uL (1.80-7.70); NEUTROPHILS PERCENT AUTO 90.1 % (41.0-71.0); PLATELET COUNT,PLT 204 K/uL (150-400); RED BLOOD CELL COUNT 4.05 M/uL (4.10-5.30); WHITE BLOOD CELL COUNT,WBC 6.42 K/uL (3.9-11.3)
[2023-12-27] MEDS: Pantoprazole 80 MG in Sodium Chloride 0.9% 10 ML IVPUSH ONE (18:05)
[2023-12-27] MEDS: Morphine 2 MG/ML SYRINGE IVPUSH ONE (18:05)
[2023-12-27 18:45] LABS: A/G RATIO 0.9 (0.9-1.6); ALANINE AMINOTRANSFERASE,ALT 166 IU/L (14-63); ALBUMIN 3.4 g/dL (3.4-5.0); ALKALINE PHOSPHATASE 101 U/L (46-116); ASPARTATE AMNIOTRANSFERASE,AST 153 IU/L (15-37); BILIRUBIN TOTAL 3.1 mg/dL (0.2-1.0); BLOOD UREA NITROGEN,BUN 8 mg/dL (7.0-18.0); CALCIUM 9.1 mg/dL (8.5-10.1); CARBON DIOXIDE,CO2 19.8 mmol/L (21.0-32.0); CHLORIDE,CL 100 mmol/L (98-107); EST CRCL DRUG DOSING (CG) 59.22 mL/min; GLUCOSE RANDOM 195 mg/dL (74-106); LIPASE 57 U/L (16-77); POTASSIUM,K 3.7 mmol/L (3.5-5.1); PROTEIN TOTAL,TP 7.1 g/dL (6.4-8.2); SODIUM,NA 136 mmol/L (136-145)
[2023-12-27 18:46] LABS: ESTIMATED GFR 68 mL/min (>60)
[2023-12-27] MEDS: Iopamidol 755 MG/ML 500 ML Multipack Bottle IVPUSH STA (19:06)
[2023-12-27 19:07] LABS: INR 1.05 (0.86-1.11); PTT,PARTIAL THROMBOPLSTIN TIME 27.9 SEC (23.9-30.7)
[2023-12-27] MEDS: Morphine 4 MG/ML Syringe IVPUSH ONE (19:09)
[2023-12-27 19:51] LABS: APPEARANCE,URINE SLT CLOUDY; COLOR,URINE YELLOW; GLUCOSE,URINE NEGATIVE (NEGATIVE); KETONES,URINE 15 mg/dL (NEGATIVE); LEUKOCYTE ESTERASE,URINE SMALL (NEGATIVE); NITRITE,URINE NEGATIVE (NEGATIVE); OCCULT BLOOD,URINE NEGATIVE (NEGATIVE); PH,URINE 6.5 (5.0-8.0); PROTEIN,URINE NEGATIVE (NEGATIVE)
[2023-12-27 19:54] LABS: BILIRUBIN,URINE SMALL (NEGATIVE)
[2023-12-27 20:07] LABS: RBC,URINE 0-2 (0-2/HPF)
[2023-12-27 20:08] LABS: BACTERIA,URINE RARE (NEGATIVE); EPITHELIAL CELLS,URINE FEW (NONE-FEW)
[2023-12-27] MEDS: HYDROmorphone 1 MG/ML Syringe IVPUSH ONE (20:12)
[2023-12-27] MEDS: HYDROmorphone 0.5 MG/0.5 ML Syringe IVPUSH ONE (22:20)
== END 2023-12-27 22:20 | disposition other institution (70) ==
LOC: MW.ED 17:01
DX: K80.50 Calculus of bile duct without cholangitis or cholecystitis without obstruction (principal); I10 Essential (primary) hypertension; Z91.048 Other nonmedicinal substance allergy status; Z79.899 Other long term (current) drug therapy
CPT/HCPCS: 36415; 74177; 76705; 80053; 81001; 81025; 83690; 84484; 85025; 85610; 85730; 93005; 96365; 96366; 96375; 96376; 99285; C9113; J1170; J1885; J2270; J2405; J3490; J7030; Q9967

== ENCOUNTER 2025-05-12 10:55 | Emergency (ER) | payer BC ==
[2025-05-12] MEDS ORDERED: Sodium Chloride 0.9% 2.5 ML Syringe FLUSH PRN (10:58)
[2025-05-12] MEDS ORDERED: Sodium Chloride 0.9% 10 ML Syringe FLUSH PRN (10:58)
[2025-05-12 11:06] LABS: BASOPHILS ABSOLUTE AUTO 0.06 K/uL (0.00-0.20); BASOPHILS PERCENT AUTO 0.6 % (0.0-1.0); EOSINOPHILS ABSOLUTE AUTO 0.14 K/uL (0.00-0.45); EOSINOPHILS PERCENT AUTO 1.5 % (0.0-6.0); IMMATURE GRAN ABSOLUTE AUTO 0.04 K/uL (0.00-0.05); IMMATURE GRAN PERCENT AUTO 0.4 % (0.0-0.4); LYMPHOCYTES ABSOLUTE AUTO 2.31 K/uL (1.00-4.80); LYMPHOCYTES PERCENT AUTO 24.0 % (24.0-44.0); MEAN PLATELET VOLUME 9.8 fL (9.4-12.3); MONOCYTES ABSOLUTE AUTO 0.72 K/uL (0.00-0.80); MONOCYTES PERCENT AUTO 7.5 % (0.0-8.0); NEUTROPHILS ABSOLUTE AUTO 6.37 K/uL (1.80-7.70); NEUTROPHILS PERCENT AUTO 66.0 % (41.0-71.0); NRBC ABSOLUTE 0.00 K/uL (0.00-0.02); NRBC PERCENT 0.0 /100WBC (0.0-0.2); PLATELET COUNT,PLT 262 K/uL (150-400); RED BLOOD CELL COUNT 3.58 M/uL (4.10-5.30); WHITE BLOOD CELL COUNT,WBC 9.64 K/uL (3.9-11.3)
[2025-05-12 11:28] LABS: INR 1.05 (0.86-1.11)
[2025-05-12 11:36] LABS: A/G RATIO 1.1 (0.9-1.6); ALANINE AMINOTRANSFERASE,ALT 57 IU/L (14-63); ASPARTATE AMNIOTRANSFERASE,AST 42 IU/L (15-37); BILIRUBIN TOTAL 0.3 mg/dL (0.2-1.0); BLOOD UREA NITROGEN,BUN 14 mg/dL (7.0-18.0); CARBON DIOXIDE,CO2 21.3 mmol/L (21.0-32.0); CHLORIDE,CL 103 mmol/L (98-107); CREATININE 1.4 mg/dL (0.6-1.0); EST CRCL DRUG DOSING (CG) 43.00 mL/min; GLUCOSE RANDOM 126 mg/dL (74-106); POTASSIUM,K 3.8 mmol/L (3.5-5.1); PRO B-TYPE NATRIUR PEPT,BNPPRO 25 pg/mL (0-125); PROTEIN TOTAL,TP 6.2 g/dL (6.4-8.2); SODIUM,NA 135 mmol/L (136-145)
[2025-05-12 11:40] LABS: BASE EXCESS VENOUS -3.1 (-2.0-3.0); BICARBONATE,VENOUS 21.0 mEq/L (22-29); PCO2 VENOUS 34.0 mmHG (41-51); PH,VENOUS 7.4 (7.32-7.43); PO2 VENOUS 57.0 mmHG (35-45)
[2025-05-12] MEDS: Naloxone 0.4 MG/ML SDV IVPUSH ONE (11:44)
[2025-05-12 11:46] LABS: ESTIMATED GFR 45 mL/min (>60); ETHANOL BLOOD MEDICAL < 3.0 mg/dL
[2025-05-12] MEDS: Lidocaine 1% with EPINEPHrine 1:100,000 10 ML MDV INFILT ONE (12:01)
[2025-05-12] MEDS: Diphtheria,Pertussis(Acell),Tetanus Vaccine 0.5 ML Syringe IM ONE (12:20)
[2025-05-12] MEDS: Bacitracin Oint 1 GM U/D Packet TOP ONE (12:20)
[2025-05-12 13:12] LABS: APPEARANCE,URINE CLEAR; GLUCOSE,URINE NEGATIVE (NEGATIVE); OCCULT BLOOD,URINE NEGATIVE (NEGATIVE)
[2025-05-12 13:18] LABS: AMPHETAMINES SCREEN, URINE NEGATIVE (CUTOFF=500); BUPRENORPHINE SCREEN,URINE NEGATIVE (CUTOFF=10); METHADONE SCREEN, URINE NEGATIVE (CUTOFF=200); METHAMPHETAMINES SCREEN, URINE NEGATIVE (CUTOFF=500); OXYCODONE SCREEN,URINE NEGATIVE (CUT0FF=100); PCP SCREEN,URINE NEGATIVE (CUTOFF=25); THC SCREEN,URINE 20 NG/ML NEGATIVE (CUTOFF=50)
== END 2025-05-12 15:58 | disposition home or self-care (01) ==
LOC: MW.ED 10:55
DX: S06.9X9A Unspecified intracranial injury with loss of consciousness of unspecified duration, initial encounter (principal); S01.01XA Laceration without foreign body of scalp, initial encounter; G44.319 Acute post-traumatic headache, not intractable; G47.34 Idiopathic sleep related nonobstructive alveolar hypoventilation; T42.6X5A Adverse effect of other antiepileptic and sedative-hypnotic drugs, initial encounter; R79.89 Other specified abnormal findings of blood chemistry; Z86.59 Personal history of other mental and behavioral disorders; Z79.899 Other long term (current) drug therapy; I10 Essential (primary) hypertension; K21.9 Gastro-esophageal reflux disease without esophagitis; Z91.048 Other nonmedicinal substance allergy status; W19.XXXA Unspecified fall, initial encounter
CPT/HCPCS: 12002; 36415; 70450; 71045; 72125; 72128; 72131; 80053; 80143; 80179; 80305; 80307; 81003; 82550; 82803; 83036; 83605; 83690; 83735; 83880; 84484; 85025; 85610; 87040; 90471; 90715; 93005; 96361; 96374; 99285; A9270; J2004; J2312; J7030; 93010; 99284